=== PATIENT | female | born 1970 | race Caucasian/White ===

== ENCOUNTER 2023-07-13 10:37 | Emergency (ER) | payer OTHER, SELFPAY ==
--- NOTE | ~2023-07-13 | XR_ITS ---
XR chest 2V DATE: 07/13/2023 11:31 INDICATION: Shortness of breath TECHNIQUE: PA and lateral views COMPARISON: None FINDINGS: Normal heart size. No hilar or mediastinal enlargement. No pulmonary infiltrate or consolid ation, pleural effusion or pulmonary vascular congestion or pneumothorax. Mild thoracolumbar levoscoliosis. Degenerative spurring of the lumbar spine. Osteopenia. IMPRESSION: No active cardiopulmonary disease Reviewed, dictated and finalized at location A.
--- NOTE | 2023-07-13 10:41 | ED.GENADULT ---
HPI - General Adult General Chief complaint: Upper Respiratory Infection Stated complaint: COUGH/SOB Time Seen by Provider: 07/13/23 10:42 Source: patient Mode of arrival: ambulatory Limitations: no limitations History of Present Illness HPI narrative: 52-year-old female presents to clinic today with symptoms of cough, wheezing, chest congestion. Patient states her symptoms started Saturday with feeling unwell, body aches, chills, runny nose and nasal congestion. Patient states she has been taking [id number] ibuprofen, Mucinex, DayQuil, and a albuterol inhaler from a previous illness and none of them have helped. Patient found out that her twhlbr-bq-zmn and niece tested positive for influenza A this week as she was recently with them for [facility]. She called her insurance company over the phone who prescribed her Tamiflu if she took the 1st dose last night. Patient has a history of social smoking and quit 5 months ago as well as a childhood history of asthma that was usually illness and exercise induced. Patient reports that the wheezing is getting worse as well as dyspnea and not able to take a full deep breath. patient has taken her temperature at home and there has been no fever. Patient also took a home COVID test which was negative on . Related Data Home Medications Medication Instructions Recorded Confirmed cholecalciferol (vitamin D3) 50 50 mcg PO DAILY 01/16/22 01/31/22 mcg (2,000 unit) capsule omega 6-bqz-zhm-fish oil 100 cap PO 01/16/22 01/31/22 mg-160 mg-1,000 mg capsule (Fish Oil) oseltamivir 75 mg capsule mg 07/13/23 Allergies Allergy/AdvReac Type Severity Reaction Status Date / Time Penicillins Allergy Unknown Unknown Verified 07/13/23 10:56 Review of Systems Review of Systems: CONSTITUTIONAL: Denies fever, positive chills, positive body aches. EYES: Denies visual changes, redness, or discharge. ENT: positive rhinorrhea, congestion, and denies sore throat, or otalgia. CARDIOVASCULAR: Denies chest pain, palpitations, or edema. RESPIRATORY: positive nonproductive cough, wheezing, and dyspnea. GASTROINTESTINAL: Denies abdominal pain, nausea, vomiting, or diarrhea. GENITOURINARY: Denies dysuria or hematuria. SKIN: Denies rash or itching. MUSCULOSKELETAL: Denies back pain, joint pain, or myalgia. NEUROLOGIC: positive headache, and denies numbness, or weakness. PSYCHIATRIC: Denies anxiety or depression. [facility] Past Medical History Medical History Dysfunctional uterine bleeding Mucous cyst of toe Surgical History Surgical History No pertinent past surgical history Family History Family History Other Diabetes mellitus Social History Social History Years smoked: 12 Smoking status: Current some day smoker (only in social situations) Tobacco type: cigarettes Second hand tobacco smoke exposure: Yes Additional smoking assessment comments: SOCIALLY Alcohol intake: current Substance use: unknown Lack of Transportation: No Lack of Food: Never True Current Housing: I Have Housing Concerned About Future Housing: No Difficulty Paying Gas/Electric Bills: No Difficulty Paying for Meds: No Currently Unemployed: No Education: High School Diploma/GED Difficulty w/ Childcare or Family Care: No Occupation/Education: occupation Gender identity (if verbalized by the patient): Female Comments At the time of my signature I agree with nursing past medical history, surgical, social, and family history. There is no relevant family history pertinent to the presenting complaint. Exam Narrative: GENERAL: Well-appearing, well-nourished, and in no acute distress. HEAD: Normocephalic, atraumatic. EYES: PERRLA and EOMI. bilateral
[2023-07-13 11:07] VITALS: BP 136/96; PULSE 104; RESP 16; TEMP 36.9; O2SAT 95
[2023-07-13] MEDS: IPRATROPIUM 0.5 MG/ALBUTEROL SULFATE 2.5 MG AMPUL.NEB 3 ML INHALATION (11:34)
[2023-07-13 12:45] VITALS: PULSE 110; RESP 20; O2SAT 93
== END 2023-07-13 12:16 | disposition home or self-care (01) ==
PROVIDERS: Emergency Provider Nurse Practitioner Family; PCP Family Medicine
DX: J06.9 Acute upper respiratory infection, unspecified (principal); R06.2 Wheezing; Z87.891 Personal history of nicotine dependence
CPT/HCPCS: 71046; 94640; 99213; G0463

== ENCOUNTER 2024-04-21 12:27 | Outpatient (CLI) | payer OTHER, SELFPAY ==
--- NOTE | ~2024-04-21 | MM_ITS ---
EXAMINATION: MM screening liat BI w emmanuel HISTORY: Screening mammogram TECHNIQUE: Craniocaudal and mediolateral oblique 3-D tomosynthesis images were obtained and synthetic 2-D images were generated. CAD analysis was submitted and interpreted. COMPARISON: No prior mammogram is available for comparison at this institution. BREAST PARENCHYMAL COMPOSITION:Not Dense. The breasts are almost entirely fatty FINDINGS: No suspicious mass, calcification, or architectural distortion are identified in either miguel ast to suggest malignancy. There has been no suspicious interval change. IMPRESSION: No mammographic evidence of malignancy. Recommend routine screening mammography in one year. BI-RADS Category 1: Negative Reviewed, dictated and finalized at location . RESEARCH ASSOCIATE
== END 2024-04-21 12:28 | disposition home or self-care (01) ==
LOC: MICIMG 12:28
PROVIDERS: PCP Family Medicine; Visit Provider Family Medicine
DX: Z12.31 Encounter for screening mammogram for malignant neoplasm of breast (principal)
CPT/HCPCS: 77063; 77067

== ENCOUNTER 2024-08-10 08:52 | Outpatient (CLI) | payer OTHER, SELFPAY ==
[2024-08-10 13:15] LABS: Alanine Aminotransferase 22 U/L (6-35); Albumin Level 4.5 g/dL (3.5-5.1); Alkaline Phosphatase 98 U/L (38-126); Anion Gap 11 mmol/L (4-12); Aspartate Amino Transferase 27 U/L (14-36); Bilirubin,Total 0.3 mg/dL (0.2-1.3); Blood Urea Nitrogen 13 mg/dL (7-17); Calcium 9.5 mg/dL (8.4-10.2); Carbon Dioxide 24 mmol/L (22-30); Chloride 104 mmol/L (98-107); Cholesterol 205 mg/dL (0-200); Estimated Glomerular Filt Rate > 60; Glucose 84 mg/dL (65-110); HDL Direct 41 mg/dL; Potassium 4.7 mmol/L (3.4-5.0); Sodium 139 mmol/L (137-145); Triglycerides 285 mg/dL (<150)
[2024-08-10 13:26] LABS: LDL Cholesterol Direct 101 mg/dL
[2024-08-10 13:40] LABS: Hemoglobin A1C 5.1 % (<5.7)
[2024-08-10 13:52] LABS: Creatinine Urine 174.6 mg/dL; MALB Creatinine Ratio 11.7 mg/g (0-30); Microalbumin Urine Random 20.4 mg/L (0-16.7)
[2024-08-10 14:28] LABS: Hepatitis C Virus Antibody Negative (Negative)
[2024-08-11 09:48] LABS: FSH 56.5 mIU/mL; LH 22.1 mIU/mL
== END 2024-08-10 08:53 | disposition home or self-care (01) ==
LOC: ANHGOSHLAB 08:54
PROVIDERS: PCP Family Medicine; Visit Provider Family Medicine
DX: Z11.59 Encounter for screening for other viral diseases (principal); R73.03 Prediabetes; Z68.41 Body mass index [BMI] 40.0-44.9, adult
CPT/HCPCS: 36415; 80053; 80061; 82043; 82607; 83001; 83002; 83036; 84443; 86803

== ENCOUNTER 2024-08-27 14:12 | Observation (INO) | payer OTHER, SELFPAY ==
--- NOTE | ~2024-08-27 | CT_ITS ---
CLINICAL INDICATION: Right upper quadrant pain and right middle back pain COMPARISON: None. TECHNIQUE: Multiple contiguous axial images of the abdomen and pelvis were performed following the ad ministration of with 100 mL Omnipaque-350 intravenous contrast The dose-length product (DLP) was 1197.21 mGy-cm. Automated exposure control and iterative reconstruction technique were employed. FINDINGS/OBSERVATIONS: Visualized lower thorax: The bilateral lung bases are clear. The heart is of normal size, without pericardial effusion. Small hiatal hernia is present. Liver: The liver demonstrates homogeneous enhancement and is enlarged measuring 22 cm in longitudinal dimens ion. Gallbladder and biliary system: The gallbladder is significantly distended, with pericholecystic fluid and surrounding inflammatory c hange. Multiple stones and gallbladder wall thickening are identified. Pancreas: The pancreas enhances homogeneously without ductal dilatation. Spleen: The spleen enhances homogeneously and is not enlarged. Kidneys: The bilateral kidneys enhance symmetrically without hydronephrosis or renal calculi. Adrenal glands: Unremarkable. Gastrointestinal tract: Colonic diverticulosis without surrounding inflammatory change. Fecal stasis within the colon. Appendix: The air-filled appendix is of normal caliber (axial series, images 140 through 164) Vasculature: Unremarkable. Lymph nodes: No pathologically enlarged or morphologically suspicious lymph nodes within the retroperitoneum or at the root of the mesentery. Pelvic structures: The bladder is only minimally distended, and otherwise unremarkable. The uterus is anteverted and anteflexed. Body wall and musculoskeletal: Small fat-containing umbilical hernia. Age-appropriate degenerative disease within the lumbosacral spine. IMPRESSION: Findings consistent with acute cholecystitis, as detailed above. Reviewed, dictated and finalized at location A.
--- NOTE | ~2024-08-27 | US_ITS ---
EXAM: ABDOMEN ULTRASOUND HISTORY: RUQ pain COMPARISON: Reference is made to a contrast-enhanced CT examination of the abdomen and pelvis perform ed approximately 1 hour earlier demonstrating findings consistent with acute cholecystitis FINDINGS: LIVER: The liver is increased in echogenicity and size. The portal vein is patent, demonstrating hepatopedal flow. GALLBLADDER: The wall of the gallbladder is edematous and thickened. Multiple stones are present. BILE DUCTS: Common bile duct measures 4.3mm. PANCREAS: Limited evaluation of the pancreas secondary to overlying bowel gas IMPRESSION: Acute cholecystitis, unchanged from CT examination performed less than an hour earlier Reviewed, dictated and finalized at location A.
[2024-08-27 14:29] VITALS: BP 130/91; PULSE 135; RESP 16; TEMP 36.6; O2SAT 98
--- NOTE | 2024-08-27 15:44 | ED.ABDPAIN ---
HPI - Abdominal Pain General Chief Complaint: Abdominal Pain <PAMELA Sharma Last Filed: 08/27/24 15:53> Stated Complaint: Right upper abd pain <PAMELA Sharma Last Filed: 08/27/24 15:53> Time Seen by Provider: 08/27/24 15:45 <PAMELA Sharma Last Filed: 08/27/24 15:53> Focused HPI: Patient is a 53 y/o female who presents to the ED with c/o RUQ abd pain. Patient reports she developed pain in her R mid to upper back on Saturday. Pain lasted for a few hours at that time. Began to radiate into her R upper abdomen. Developed N/V, reported having multiple episodes of vomiting Saturday. Has been taking Ibuprofen with minimal relief. Also chills, subjective fevers. Denies diarrhea/constipation. Denies hx of similar pain. She does still have a gallbladder. GENERAL: Well-appearing, obese with BMI of 38.9, and in no acute distress. HEAD: Normocephalic, atraumatic. CHEST: Clear to auscultation. ?No respiratory distress. HEART: Tachycardic with regular rhythm.?Pulses intact. ABD: Focal tenderness to palpation in RUQ. Normoactive BS MSK: No appreciable tenderness throughout mid back. NEURO: ?Alert and oriented x3. Patient screened in triage and initial orders placed.? ?Additional care and disposition to be based upon?diagnostic testing and treatment. <Elaina Stark PA-C - Last Filed: 08/27/24 15:53> Source: patient <PAMELA Sharma Last Filed: 08/27/24 15:53> Mode of arrival: ambulatory <PAMELA Sharma Last Filed: 08/27/24 15:53> Limitations: no limitations <PAMELA Sharma Last Filed: 08/27/24 15:53> History of Present Illness HPI narrative: Agree with HPI <Fernando Bernal MD - Last Filed: 08/27/24 22:17> Related Data Home Medications: Home Medications ?Medication ?Instructions ?Recorded ?Confirmed ?Last Taken ?Type cholecalciferol (vitamin D3) 50 50 mcg PO DAILY 01/16/22 08/27/24 08/25/24 History mcg (2,000 unit) capsule omega 8-xpc-npp-fish oil 100 1 cap PO DAILY 01/16/22 08/27/24 08/25/24 History mg-160 mg-1,000 mg capsule (Fish Oil) Semaglutide compounded subcut 07/08/24 07/08/24 08/13/24 History <Elaina Stark PA-C - Last Filed: 08/27/24 15:53> Allergies/Adverse Reactions: Allergies Allergy/AdvReac Type Severity Reaction Status Date / Time Penicillins Allergy Unknown Peeling Verified 08/27/24 14:13 skin <PAMELA Sharma Last Filed: 08/27/24 15:53> Review of Systems Review of Systems: All systems reviewed & are unremarkable except as noted in HPI and below <PAMELA Miller Last Filed: 08/27/24 19:40> [facility] Past Medical History Medical History: Medical History Asthma Mixed hyperlipidemia Polycystic ovarian syndrome <PAMELA Sharma Last Filed: 08/27/24 15:53> Surgical History Surgical History: Surgical History No pertinent past surgical history <PAMELA Sharma Last Filed: 08/27/24 15:53> Family History Family History: Family History Other Diabetes mellitus <PAMELA Sharma Last Filed: 08/27/24 15:53> Social History Social History: Social History Years smoked: 12 Smoking status: Current some day smoker (only in social situations) Tobacco type: cigarettes Second hand tobacco smoke exposure: Yes Additional smoking assessment comments: SOCIALLY since she was in her early 20's, pt states maybe once every couple Alcohol intake: current Alcohol use details: occasionally Substance use: never Substance use type: does not use Do You Feel Safe in your Home?: Yes Lack of Transportation: No Lack of Food: Never True Current Housing: I Have Housing Concerned About Future Housing: No Difficulty Paying Gas/Electric Bills: No Difficulty Paying for Meds: No Currently Unemployed: No Education: High School Diploma/GED Difficulty w/ Childcare or Family Care: No Occupation/Education: occupation Gender identity (if verbalized by the patient): Female <Elaina Stark PA-C - Last Filed: 08/27/24 15:53> Exam Narrative: GENERAL: Well-appearing, well-nourished, and in no acute distress. HEAD: Normocephalic, atraumatic. EYES: EOMI. CHEST: Clear to auscultation. No respiratory distress. No wheezes rales or rhonchi HEART: Regular rate and rhythm. No murmur heard. Normal peripheral pulses. ABDOMEN: Soft, nondistended, normal active bowel sounds. Tender to palpation in the RUQ, without guarding EXTREMITIES: Normal range of motion. No edema. SKIN: Warm, dry, no rash. NEURO: No focal deficits. Alert and oriented x3. PSYCH: Normal mood and affect <Belgica Pope PA-C - Last Filed: 08/27/24 19:40> Course Course Emergency Course: patient updated on her workup and need for admission <Belgica Pope PA-C - Last Filed: 08/27/24 19:40> COMBINING MACHINE OPERATOR/PA Physician Supervision This visit was performed by both a physician and an APC. I performed all aspects of the MDM as documented. <Fernando Bernal MD - Last Filed: 08/27/24 22:17> Consultations Consultation #1: Spoke with Dr. Lau who will consult <Belgica Pope PA-C - Last Filed: 08/27/24 19:40> Date: 08/27/24 <PAMELA Miller Last Filed: 08/27/24 19:40> Consultation #2: Spoke with hospitalist who accepts admission <Belgica Pope PA-C - Last Filed: 08/27/24 19:40> Date: 08/27/24 <Belgica Pope PA-C - Last Filed: 08/27/24 19:40> Vital Signs Vital signs: Vital Signs Temperature 97.8 F 08/27/24 14:29 Pulse Rate 135 H 08/27/24 14:29 Respiratory Rate 16 08/27/24 14:29 Blood Pressure 130/91 H 08/27/24 14:29 Pulse Oximetry 98 08/27/24 14:29 Temperature 97.7 F 08/27/24 20:54 Pulse Rate 104 H 08/27/24 20:54 Respiratory Rate 18 08/27/24 20:54 Blood Pressure 106/63 08/27/24 20:54 Pulse Oximetry 98 08/27/24 20:54 <Elaina Stark PA-C - Last Filed: 08/27/24 15:53> Vital Signs Temperature 97.8 F 08/27/24 14:29 Pulse Rate 135 H 08/27/24 14:29 Respiratory Rate 16 08/27/24 14:29 Blood Pressure 130/91 H 08/27/24 14:29 Pulse Oximetry 98 08/27/24 14:29 Temperature 97.7 F 08/27/24 20:54 Pulse Rate 104 H 08/27/24 20:54 Respiratory Rate 18 08/27/24 20:54 Blood Pressure 106/63 08/27/24 20:54 Pulse Oximetry 98 08/27/24 20:54 <Belgica Pope PA-C - Last Filed: 08/27/24 19:40> Vital Signs Temperature 97.8 F 08/27/24 14:29 Pulse Rate 135 H 08/27/24 14:29 Respiratory Rate 16 08/27/24 14:29 Blood Pressure 130/91 H 08/27/24 14:29 Pulse Oximetry 98 08/27/24 14:29 Temperature 97.7 F 08/27/24 20:54 Pulse Rate 104 H 08/27/24 20:54 Respiratory Rate 18 08/27/24 20:54 Blood Pressure 106/63 08/27/24 20:54 Pulse Oximetry 98 08/27/24 20:54 <Fernando Bernal MD - Last Filed: 08/27/24 22:17> MDM - Abdominal Pain MDM Narrative Medical decision making narrative: MSE by JOHN in triage. <PAMELA Sharma Last Filed: 08/27/24 15:53> MSE by JOHN in triage. Patient presents to the ER for RUQ abdominal pain. She is afebrile and nontoxic appearing. Tachycardic upon arrival. This improved with IV fluids. CBC with leukocytosis to 24.1. Metabolic panel with mild hyperbilirubinemia. Lipase is normal. Urine with 11-20 white blood cells, also moderate squamous epithelial cells. This will be sent for culture. Patient is not having any urinary symptoms test is negative. CT abdomen pelvis shows findings consistent with acute cholecystitis. Patient started on IV antibiotics. Spoke with general surgery who will consult. Spoke with hospitalist about patient and workup accepts admission. <PAMELA Miller Last Filed: 08/27/24 19:40> Differential Diagnosis Differential diagnosis: Likely gastroenteritis, pancreatitis and other (biliary colic) <PAMELA Miller Last Filed: 08/27/24 19:40> Lab Data Attestation: I reviewed the patient's lab results. <Belgica Pope PA-C - Last Filed: 08/27/24 19:40> Result diagrams: 08/27/24 15:55 08/27/24 15:55 <PAMELA Sharma Last Filed: 08/27/24 15:53> Labs: Lab Results 08/27/24 08/27/24 08/27/24 Range/Units 15:55 16:38 16:42 WBC 24.1 H (4.5-10.0) K/mm3 RBC 4.84 (4.2-5.4) M/mm3 Hgb 14.8 (12.0-15.0) g/dL Hct 43.0 (37.0-47.0) % MCV 88.8 (80-100) fl MCH 30.6 (26-34) pg MCHC 34.4 (32-36) g/dl RDW 13.8 (11.5-14.5) % Plt Count 241 (150-375) k/mm3 MPV 9.5 (7.4-10.4) fl Immature Gran % (Auto) 0.7 H (0-0.5) % Neut % (Auto) 84.4 H (45.5-73.1) % Lymph % (Auto) 7.4 L (18.3-44.2) % [place] % (Auto) 6.8 (2.6-8.5) % Eos % (Auto) 0.5 (0-4.4) % Baso % (Auto) 0.2 (0.2-1.2) % Lymph # (Auto) 1.77 (0.9-3.2) K/mm3 [place] # (Auto) 1.6 H (0.1-0.6) K/mm3 Eos # (Auto) 0.1 (0-0.3) K/mm3 Baso # (Auto) 0.0 (0.0-0.1) K/mm3 Abs Immat Gran (auto) 0.17 H (0.00-0.031) K/mm3 Absolute Neuts (auto) 20.3 H (1.3-6.7) K/mm3 Absolute Nucleated RBC 0.000 (0.0-0.012) K/mm3 Nucleated RBC % 0.0 (0.0-0.2) % Sodium 136 L (137-145) mmol/L Potassium 3.9 (3.4-5.0) mmol/L Chloride 100 (98-107) mmol/L Carbon Dioxide 23 (22-30) mmol/L Anion Gap 13 H (4-12) mmol/L BUN 11 (7-17) mg/dL Creatinine 0.62 L (0.7-1.0) mg/dL Estim Creat Clear Calc 109 ml/min Estimated GFR > 60 (59 - ) Glucose 138 H (65-110) mg/dL Calcium 9.8 (8.4-10.2) mg/dL Total Bilirubin 1.4 H (0.2-1.3) mg/dL AST 33 (14-36) U/L ALT 30 (6-35) U/L Alkaline Phosphatase 92 (38-126) U/L Troponin I < 0.012 (0.000-0.034) ng/mL Total Protein 9.0 H (6.3-8.2) g/dL Albumin 4.7 (3.5-5.1) g/dL Lipase 34 (23-300) U/L Procalcitonin 0.5 ng/mL Urine Color Dark yellow (Yellow) Urine Appearance Cloudy H (Clear) Urine pH 5.5 (5.0-9.0) Ur Specific [place] 1.017 (1.001-1.035) Urine Protein 1+ H (Negative) mg/dL Urine Glucose (UA) Negative (Negative) mg/dL Urine Ketones Trace H (Negative) mg/dL Ur Blood (Man) Negative (Negative) Urine Nitrate Negative (Negative) Urine Bilirubin Negative (Negative) Urine Urobilinogen 1.0 (<2.0) mg/dL Leukocyte Esterase Rfl 2+ H (Negative) MINDY/UL Urine RBC 3-5 H (0-2) /hpf Urine WBC 11-20 H (0-3) /hpf Ur Squamous Epith Cells Moderate (Few) /hpf Urine Bacteria 1+ H /hpf Urine Casts 0-2 POC Urine HCG, Qual Negative (Negative) <Elaina Stark PA-C - Last Filed: 08/27/24 15:53> Lab Results 08/27/24 08/27/24 08/27/24 Range/Units 15:55 16:38 16:42 WBC 24.1 H (4.5-10.0) K/mm3 RBC 4.84 (4.2-5.4) M/mm3 Hgb 14.8 (12.0-15.0) g/dL Hct 43.0 (37.0-47.0) % MCV 88.8 (80-100) fl MCH 30.6 (26-34) pg MCHC 34.4 (32-36) g/dl RDW 13.8 (11.5-14.5) % Plt Count 241 (150-375) k/mm3 MPV 9.5 (7.4-10.4) fl Immature Gran % (Auto) 0.7 H (0-0.5) % Neut % (Auto) 84.4 H (45.5-73.1) % Lymph % (Auto) 7.4 L (18.3-44.2) % [place] % (Auto) 6.8 (2.6-8.5) % Eos % (Auto) 0.5 (0-4.4) % Baso % (Auto) 0.2 (0.2-1.2) % Lymph # (Auto) 1.77 (0.9-3.2) K/mm3 [place] # (Auto) 1.6 H (0.1-0.6) K/mm3 Eos # (Auto) 0.1 (0-0.3) K/mm3 Baso # (Auto) 0.0 (0.0-0.1) K/mm3 Abs Immat Gran (auto) 0.17 H (0.00-0.031) K/mm3 Absolute Neuts (auto) 20.3 H (1.3-6.7) K/mm3 Absolute Nucleated RBC 0.000 (0.0-0.012) K/mm3 Nucleated RBC % 0.0 (0.0-0.2) % Sodium 136 L (137-145) mmol/L Potassium 3.9 (3.4-5.0) mmol/L Chloride 100 (98-107) mmol/L Carbon Dioxide 23 (22-30) mmol/L Anion Gap 13 H (4-12) mmol/L BUN 11 (7-17) mg/dL Creatinine 0.62 L (0.7-1.0) mg/dL Estim Creat Clear Calc 109 ml/min Estimated GFR > 60 (59 - ) Glucose 138 H (65-110) mg/dL Calcium 9.8 (8.4-10.2) mg/dL Total Bilirubin 1.4 H (0.2-1.3) mg/dL AST 33 (14-36) U/L ALT 30 (6-35) U/L Alkaline Phosphatase 92 (38-126) U/L Troponin I < 0.012 (0.000-0.034) ng/mL Total Protein 9.0 H (6.3-8.2) g/dL Albumin 4.7 (3.5-5.1) g/dL Lipase 34 (23-300) U/L Procalcitonin 0.5 ng/mL Urine Color Dark yellow (Yellow) Urine Appearance Cloudy H (Clear) Urine pH 5.5 (5.0-9.0) Ur Specific [place] 1.017 (1.001-1.035) Urine Protein 1+ H (Negative) mg/dL Urine Glucose (UA) Negative (Negative) mg/dL Urine Ketones Trace H (Negative) mg/dL Ur Blood (Man) Negative (Negative) Urine Nitrate Negative (Negative) Urine Bilirubin Negative (Negative) Urine Urobilinogen 1.0 (<2.0) mg/dL Leukocyte Esterase Rfl 2+ H (Negative) MINDY/UL Urine RBC 3-5 H (0-2) /hpf Urine WBC 11-20 H (0-3) /hpf Ur Squamous Epith Cells Moderate (Few) /hpf Urine Bacteria 1+ H /hpf Urine Casts 0-2 POC Urine HCG, Qual Negative (Negative) <Belgica Pope PA-C - Last Filed: 08/27/24 19:40> Lab Results 08/27/24 08/27/24 08/27/24 Range/Units 15:55 16:38 16:42 WBC 24.1 H (4.5-10.0) K/mm3 RBC 4.84 (4.2-5.4) M/mm3 Hgb 14.8 (12.0-15.0) g/dL Hct 43.0 (37.0-47.0) % MCV 88.8 (80-100) fl MCH 30.6 (26-34) pg MCHC 34.4 (32-36) g/dl RDW 13.8 (11.5-14.5) % Plt Count 241 (150-375) k/mm3 MPV 9.5 (7.4-10.4) fl Immature Gran % (Auto) 0.7 H (0-0.5) % Neut % (Auto) 84.4 H (45.5-73.1) % Lymph % (Auto) 7.4 L (18.3-44.2) % [place] % (Auto) 6.8 (2.6-8.5) % Eos % (Auto) 0.5 (0-4.4) % Baso % (Auto) 0.2 (0.2-1.2) % Lymph # (Auto) 1.77 (0.9-3.2) K/mm3 [place] # (Auto) 1.6 H (0.1-0.6) K/mm3 Eos # (Auto) 0.1 (0-0.3) K/mm3 Baso # (Auto) 0.0 (0.0-0.1) K/mm3 Abs Immat Gran (auto) 0.17 H (0.00-0.031) K/mm3 Absolute Neuts (auto) 20.3 H (1.3-6.7) K/mm3 Absolute Nucleated RBC 0.000 (0.0-0.012) K/mm3 Nucleated RBC % 0.0 (0.0-0.2) % Sodium 136 L (137-145) mmol/L Potassium 3.9 (3.4-5.0) mmol/L Chloride 100 (98-107) mmol/L Carbon Dioxide 23 (22-30) mmol/L Anion Gap 13 H (4-12) mmol/L BUN 11 (7-17) mg/dL Creatinine 0.62 L (0.7-1.0) mg/dL Estim Creat Clear Calc 109 ml/min Estimated GFR > 60 (59 - ) Glucose 138 H (65-110) mg/dL Calcium 9.8 (8.4-10.2) mg/dL Total Bilirubin 1.4 H (0.2-1.3) mg/dL AST 33 (14-36) U/L ALT 30 (6-35) U/L Alkaline Phosphatase 92 (38-126) U/L Troponin I < 0.012 (0.000-0.034) ng/mL Total Protein 9.0 H (6.3-8.2) g/dL Albumin 4.7 (3.5-5.1) g/dL Lipase 34 (23-300) U/L Procalcitonin 0.5 ng/mL Urine Color Dark yellow (Yellow) Urine Appearance Cloudy H (Clear) Urine pH 5.5 (5.0-9.0) Ur Specific [place] 1.017 (1.001-1.035) Urine Protein 1+ H (Negative) mg/dL Urine Glucose (UA) Negative (Negative) mg/dL Urine Ketones Trace H (Negative) mg/dL Ur Blood (Man) Negative (Negative) Urine Nitrate Negative (Negative) Urine Bilirubin Negative (Negative) Urine Urobilinogen 1.0 (<2.0) mg/dL Leukocyte Esterase Rfl 2+ H (Negative) MINDY/UL Urine RBC 3-5 H (0-2) /hpf Urine WBC 11-20 H (0-3) /hpf Ur Squamous Epith Cells Moderate (Few) /hpf Urine Bacteria 1+ H /hpf Urine Casts 0-2 POC Urine HCG, Qual Negative (Negative) <Fernando Bernal MD - Last Filed: 08/27/24 22:17> Imaging Data Radiologist's impression: ITS Impressions Abdomen/Pelvis CT 08/27/24 18:45 IMPRESSION: Findings consistent with acute cholecystitis, as detailed above. Abdomen Ultrasound 08/27/24 20:08 IMPRESSION: Acute cholecystitis, unchanged from CT examination performed less than an hour earlier <Elaina Stark PA-C - Last Filed: 08/27/24 15:53> ITS Impressions Abdomen/Pelvis CT 08/27/24 18:45 IMPRESSION: Findings consistent with acute cholecystitis, as detailed above. Abdomen Ultrasound 08/27/24 20:08 IMPRESSION: Acute cholecystitis, unchanged from CT examination performed less than an hour earlier <Belgica Pope PA-C - Last Filed: 08/27/24 19:40> ITS Impressions Abdomen/Pelvis CT 08/27/24 18:45 IMPRESSION: Findings consistent with acute cholecystitis, as detailed above. Abdomen Ultrasound 08/27/24 20:08 IMPRESSION: Acute cholecystitis, unchanged from CT examination performed less than an hour earlier <Fernando Bernal MD - Last Filed: 08/27/24 22:17> Critical Care Time Critical Care Time Critical Care Time: No <Belgica Pope PA-C - Last Filed: 08/27/24 19:40> Discharge Plan Discharge Clinical Impression: Acute cholecystitis <Elaina Stark PA-C - Last Filed: 08/27/24 15:53> Patient Disposition: Still a Patient <PAMELA Sharma Last Filed: 08/27/24 15:53> Condition: Stable <Elaina Stark PA-C - Last Filed: 08/27/24 15:53>
--- NOTE | 2024-08-27 15:47 | ECG_ITS ---
Test Date: 2024-08-27 15:58:32 Measurements Intervals [place] Rate: 130 P: 38 SC: 128 QRS: 55 QRSD: 90 T: 40 QT: 373 QTc: 549 Interpretive Statements SINUS TACHYCARDIA NONSPECIFIC T-WAVE ABNORMALITY No previous ECG available for comparison Electronically Signed On 08-28-2024 12:38:34 CDT by Melvin Self M.D.
[2024-08-27 16:06] LABS: Basophils Percent Auto 0.2 % (0.2-1.2); Eosinophils Absolute Auto 0.1 K/mm3 (0-0.3); Eosinophils Percent Auto 0.5 % (0-4.4); Hemoglobin 14.8 g/dL (12.0-15.0); Immature Granulocyte Absolute 0.17 K/mm3 (0.00-0.031); Immature Granulocyte Percent A 0.7 % (0-0.5); Lymphocytes Absolute Auto 1.77 K/mm3 (0.9-3.2); Lymphocytes Percent Auto 7.4 % (18.3-44.2); Mean Corpuscular HGB Conc 34.4 g/dl (32-36); Mean Corpuscular Hemoglobin 30.6 pg (26-34); Mean Corpuscular Volume 88.8 fl (80-100); Mean Platelet Volume 9.5 fl (7.4-10.4); Monocytes Absolute Auto 1.6 K/mm3 (0.1-0.6); Monocytes Percent Auto 6.8 % (2.6-8.5); Neutrophils Absolute Auto 20.3 K/mm3 (1.3-6.7); Neutrophils Percent Auto 84.4 % (45.5-73.1); Platelet Count Result 241 k/mm3 (150-375); Red Blood Count 4.84 M/mm3 (4.2-5.4); Red Cell Distribution Width 13.8 % (11.5-14.5); White Blood Count 24.1 K/mm3 (4.5-10.0)
[2024-08-27 16:20] LABS: Alanine Aminotransferase 30 U/L (6-35); Albumin Level 4.7 g/dL (3.5-5.1); Alkaline Phosphatase 92 U/L (38-126); Anion Gap 13 mmol/L (4-12); Aspartate Amino Transferase 33 U/L (14-36); Bilirubin,Total 1.4 mg/dL (0.2-1.3); Blood Urea Nitrogen 11 mg/dL (7-17); Calcium 9.8 mg/dL (8.4-10.2); Carbon Dioxide 23 mmol/L (22-30); Chloride 100 mmol/L (98-107); Estimated CRCL calculation 109 ml/min; Estimated Glomerular Filt Rate > 60; Glucose 138 mg/dL (65-110); Lipase 34 U/L (23-300); Potassium 3.9 mmol/L (3.4-5.0); Sodium 136 mmol/L (137-145)
[2024-08-27 16:33] LABS: Troponin I < 0.012 ng/mL (0.000-0.034)
[2024-08-27] MEDS: HYDROcodone/acetaminophen (*CRX) 5-325 MG TABLET 1 TAB PO (16:37)
[2024-08-27 16:44] LABS: BEDSIDEPREGUCG Negative (Negative)
[2024-08-27 16:50] LABS: Add Urine Microscopic? YES; Appearance Urine Cloudy (Clear); Bacteria Urine 1+ /hpf; Bilirubin Urine Negative (Negative); Blood Urine Negative (Negative); Color Urine Dark Yellow (Yellow); Glucose Urine UA Negative (Negative); Ketones Urine Trace mg/dL (Negative); Leukocyte Esterase Ur 2+ LEU/UL (Negative); Nitrate Urine Negative (Negative); Non Pathogenic Casts 0-2; Protein Urine 1+ mg/dL (Negative); Specific Grav Ur 1.017 (1.001-1.035); Squamous Epithelial Cell Urine Moderate /hpf (Few); pH Urine 5.5 (5.0-9.0)
[2024-08-27 17:58] VITALS: BP 112/84; PULSE 127; RESP 17; O2SAT 97
[2024-08-27] MEDS: SODIUM CHLORIDE 0.9% IV 1,000 ML 999 ML IV CONT (18:39)
[2024-08-27] MEDS: KETOROLAC 15 MG/ML VIAL (*BKC) IV PUSH (18:46)
--- NOTE | 2024-08-27 19:07 | P.HP_ITS ---
H&P: HPI History of Present Illness Date/Time: 08/27/24 19:07 Chief Complaint: Abdominal Pain Narrative: 53 y/o F with PMH of asthma (sports and allergy induced), PCOS, and HLD presents here with abdominal pain. The patient presents here from home for further evaluation of abdominal pain. She reports onset Saturday afternoon (08/25). Initially started as pain between her shoulder blades. Then within 3 hrs of onset she began having nausea and vomiting which persisted through the night. Saturday morning the patient's right upper abdomen began to hurt and was tender when she pressed on it. Endorsing chills. Denies diarrhea or fever. No abdominal surgical history. Initial VS at presentation: 97.8? F, HR 135, R 16, 130/91, 98% on RA. ED workup showed: WBC 24.1, no anemia, sodium 136, creatinine 0.62 and GFR >60, glucose 138, total bilirubin 1.4 with normal LFTs, initial troponin negative, UA suspicious for UTI however there are moderate epithelial cells recent concerns for contamination. HCG negative. CT of the abdomen/pelvis and ultrasound of the abdomen showed acute cholecystitis. Review of Systems Review of Systems: All systems reviewed & are unremarkable except as noted in HPI and below [facility] Past Medical History Medical History Asthma Mixed hyperlipidemia Polycystic ovarian syndrome Surgical History Surgical History No pertinent past surgical history Family History Family History Other Diabetes mellitus Social History Social History Years smoked: 12 Smoking status: Current some day smoker (only in social situations) Tobacco type: cigarettes Second hand tobacco smoke exposure: Yes Additional smoking assessment comments: SOCIALLY since she was in her early 20's, pt states maybe once every couple Alcohol intake: current Alcohol use details: occasionally Substance use: never Substance use type: does not use Do You Feel Safe in your Home?: Yes Lack of Transportation: No Lack of Food: Never True Current Housing: I Have Housing Concerned About Future Housing: No Difficulty Paying Gas/Electric Bills: No Difficulty Paying for Meds: No Currently Unemployed: No Education: High School Diploma/GED Difficulty w/ Childcare or Family Care: No Occupation/Education: occupation Gender identity (if verbalized by the patient): Female Meds Home Medications and Allergies Home Medications ?Medication ?Instructions ?Recorded ?Confirmed ?Type cholecalciferol (vitamin D3) 50 50 mcg PO DAILY 01/16/22 07/08/24 History mcg (2,000 unit) capsule omega 6-vny-kpl-fish oil 100 1 cap PO DAILY 01/16/22 07/08/24 History mg-160 mg-1,000 mg capsule (Fish Oil) albuterol sulfate 90 mcg/actuation 2 puff inhalation .Q4 hours PRN 07/13/23 07/08/24 Rx aerosol inhaler (Ventolin HFA) cough #18 grams atorvastatin 10 mg tablet See Rx Instructions .Route 03/19/24 07/08/24 Rx .COMPLEX #90 tabs venlafaxine 37.5 mg See Rx Instructions .Route 04/06/24 07/08/24 Rx capsule,extended release 24 hr .COMPLEX #90 caps alprazolam 0.5 mg tablet 0.5 mg PO TID PRN anxiety #15 tabs 05/11/24 07/08/24 Rx Semaglutide compounded subcut 07/08/24 07/08/24 History sodium sul 1.479 gram-potas ch See Rx Instructions PO PER PKG DIR 07/23/24 Rx 0.188 gram-magnes sul 0.225 gram #24 tabs tablet (Sutab) spironolactone 50 mg tablet See Rx Instructions .Route 08/13/24 Rx .COMPLEX #180 tabs metformin 500 mg tablet,extended 1,000 mg (2 x 500 mg) PO BID #360 08/14/24 Rx release 24 hr tabs ketorolac 10 mg tablet 10 mg PO .COMPLEX PRN pain 5 days 08/27/24 Rx #21 tabs Allergies Allergy/AdvReac Type Severity Reaction Status Date / Time Penicillins Allergy Unknown Peeling Verified 08/27/24 14:13 skin Vital Signs Vital Signs - 24 hr 08/27/24 14:29 08/27/24 17:58 Temperature 97.8 F Pulse Rate 135 H 127 H Respiratory Rate 16 17 Blood Pressure 130/91 H 112/84 Pulse Oximetry 98 97 Exam Const: General: comfortable and no acute distress Other: , female, nontoxic appearance HENMT: Face/Nose/Sinus: Normal nares present Mouth: Yes moist mucous membranes Eyes: General: appearance normal, both eyes and all related structures Sclera: sclerae normal Pupils: Equal, round and reactive pupils present EOM: EOMs intact bilaterally Resp: Effort & Inspection: normal respiratory effort Auscultation: clear to auscultation bilaterally Cardio: Rate: regular rate Rhythm: regular rhythm Other: S1-S2 present without murmur, rub, ectopy GI: Other: Significant tenderness in the right upper quadrant and epigastric region, more so on the right upper quadrant. Nondistended, normoactive bowel sounds in all quadrants, soft. Skin: General skin exam: normal color and no rashes or lesions noted Wounds: no wounds Neuro: Speech: normal speech Motor exam (neuro): 5/5 motor strength present throughout Sensory Exam: normal sensation Other: A&O x4 Extrem: General: normal to inspection Psych: Mental Status: mental status grossly normal Affect: normal affect Other: Good insight and judgment, very pleasant H&P: Results Labs Labs: Short CBC 08/27/24 Range/Units 15:55 WBC 24.1 H (4.5-10.0) K/mm3 Hgb 14.8 (12.0-15.0) g/dL Hct 43.0 (37.0-47.0) % Plt Count 241 (150-375) k/mm3 BMP 08/27/24 15:55 Sodium 136 L Potassium 3.9 Chloride 100 Carbon Dioxide 23 BUN 11 Creatinine 0.62 L Glucose 138 H Calcium 9.8 Cardiac Enzymes 08/27/24 Range/Units 15:55 Troponin I < 0.012 (0.000-0.034) ng/mL Liver Function 08/27/24 Range/Units 15:55 Total Bilirubin 1.4 H (0.2-1.3) mg/dL AST 33 (14-36) U/L ALT 30 (6-35) U/L Alkaline Phosphatase 92 (38-126) U/L Albumin 4.7 (3.5-5.1) g/dL Urine 08/27/24 Range/Units 16:38 Urine Color Dark yellow (Yellow) Urine Appearance Cloudy H (Clear) Urine pH 5.5 (5.0-9.0) Ur Specific [place] 1.017 (1.001-1.035) Urine Protein 1+ H (Negative) mg/dL Urine Glucose (UA) Negative (Negative) mg/dL Assessment and Plan Assessment and plan (1) Sepsis: Qualifiers: Sepsis acute organ dysfunction status: without acute organ dysfunction Sepsis type: sepsis due to unspecified organism Qualified Code(s): A41.9 - Sepsis, unspecified organism Code(s): A41.9 - Sepsis, unspecified organism Status: Acute Assessment and Plan: - meets SIRS criteria: HR, WBC. No hypotension or hypoxia. - has received fluids, no lactic ordered prior. Will check procalcitonin. - 30 mL/kg = 3L, initially given 1 L bolus. Will at 2 L bolus for total of 3. - suspected source: Acute cholecystitis - started on ceftriaxone and Flagyl - blood cultures drawn on 08/27 - UA suspicious for UTI, however may be contaminant as there are moderate epithelial cells - monitor hemodynamic stability (2) Acute cholecystitis: Code(s): K81.0 - Acute cholecystitis Status: Acute Assessment and Plan: - CT abd/pelvis: Findings consistent with acute cholecystitis, as detailed above. - total bilirubin 1.4, AST/ALT within normal limits, alk-phos within normal limits - general surgery consulted - Judi CULLEN - NPO with ice chips until midnight, then full NPO and IV fluids at 75 mL/hr - started on ceftriaxone and Flagyl on 08/27 - US RUQ ordered (3) UTI (urinary tract infection): Qualifiers: Hematuria presence: without hematuria Urinary tract infection type: acute cystitis Qualified Code(s): N30.00 - Acute cystitis without hematuria Code(s): N39.0 - Urinary tract infection, site not specified Status: Acute Assessment and Plan: - UA: Cloudy, 1+ protein, trace ketones, 2+ leuks, 3-5 RBC, 11-20 WBC, 1+ bacteria, moderate epithelial cells. Contaminant versus infection. - UC pending, follow - no previous micro available for review - started on Ceftriaxone on 08/27 (4) Prediabetes: Code(s): R73.03 - Prediabetes Status: Chronic Assessment and Plan: - A1c 5.1% on 08/10 Plan Diet: NPO GI Prophylaxis: Not currently indicated DVT Prophylaxis: SCDs IV fluids: 3L bolus -> 75 mL/hour Lines/Tubes: Peripheral IV Code Status: Full code Quality VTE Prophylaxis VTE prophylaxis: mechanical ordered Hospitalist MIPS Advance Care Plan I have confirmed that the patient's Advanced Care Plan is present, code status is documented, or surrogate decision maker is listed in patient medical record.: Yes Medication Reconciliation I have utilized all available resources to obtain, update and review the patients current medications (includes all prescriptions, OTC, herbals, cannabis, and nutritional supplements).: Yes
[2024-08-27] MEDS: metroNIDAZOLE 500 MG/ISO 100ML 500 MG/100 ML BAG 100 MG IVPB (19:25)
[2024-08-27 19:30] VITALS: BP 126/72; PULSE 108; RESP 18; O2SAT 98
[2024-08-27 20:12] LABS: Procalcitonin 0.5 ng/mL
[2024-08-27 20:18] VITALS: PULSE 104; RESP 20; O2SAT 100
[2024-08-27] MEDS: LACTATED RINGERS 1,000 ML 999 ML IV CONT ×2 (20:43→20:58)
[2024-08-27 20:54] VITALS: BP 106/63; PULSE 104; RESP 18; TEMP 36.5; O2SAT 98
[2024-08-27 21:00] VITALS: PULSE 115; RESP 18; O2SAT 98
[2024-08-27 21:55] VITALS: BMI 38.9
--- NOTE | 2024-08-27 22:22 | ADMGEN ---
This patient, Jessica Crowley, was admitted to [facility] S[facility] Room 329-01. Patient/family oriented to hospital policies and general routines including ID bracelet, bed and alarms, visiting hours, pain management, procedures, bathroom and other care routines, personal items, smoking policy, room service/diet, and visiting hours. Information on how to activate the Rapid Response Team has been discussed. Patient/Family are encouraged to report perceived risks to care and to ask questions if they do not understand what they are told or what they should do.
[2024-08-27] MEDS: MORPHINE SULFATE (*CRX) 4 MG/ML INJ IV PUSH (22:45)
[2024-08-27] MEDS: SODIUM CHLORIDE 0.9% IV 1,000 ML 75 ML IV CONT (22:45)
[2024-08-28] VITALS (21 sets, daily range): BP systolic 106–148; BP diastolic 70–97; PULSE 97–120; RESP 12–22; TEMP 35.5–37.1; O2SAT 92–100
[2024-08-28] MEDS: MORPHINE SULFATE (*CRX) 4 MG/ML INJ IV PUSH ×2 (04:35→09:32)
[2024-08-28] MEDS: metroNIDAZOLE 500 MG/ISO 100ML 500 MG/100 ML BAG 100 MG IVPB ×3 (05:32→21:54)
[2024-08-28 06:36] LABS: Basophils Percent Auto 0.3 % (0.2-1.2); Eosinophils Absolute Auto 0.1 K/mm3 (0-0.3); Eosinophils Percent Auto 0.9 % (0-4.4); Hematocrit 36.7 % (37.0-47.0); Hemoglobin 12.1 g/dL (12.0-15.0); Immature Granulocyte Absolute 0.12 K/mm3 (0.00-0.031); Immature Granulocyte Percent A 0.8 % (0-0.5); Lymphocytes Absolute Auto 1.11 K/mm3 (0.9-3.2); Lymphocytes Percent Auto 7.1 % (18.3-44.2); Mean Corpuscular Hemoglobin 30.3 pg (26-34); Mean Corpuscular Volume 91.8 fl (80-100); Mean Platelet Volume 9.6 fl (7.4-10.4); Monocytes Absolute Auto 1.1 K/mm3 (0.1-0.6); Monocytes Percent Auto 6.9 % (2.6-8.5); Neutrophils Absolute Auto 13.1 K/mm3 (1.3-6.7); Platelet Count Result 188 k/mm3 (150-375); White Blood Count 15.6 K/mm3 (4.5-10.0)
[2024-08-28 06:54] LABS: Alanine Aminotransferase 28 U/L (6-35); Albumin Level 3.8 g/dL (3.5-5.1); Alkaline Phosphatase 95 U/L (38-126); Anion Gap 8 mmol/L (4-12); Aspartate Amino Transferase 31 U/L (14-36); Bilirubin,Total 0.7 mg/dL (0.2-1.3); Blood Urea Nitrogen 10 mg/dL (7-17); Calcium 8.6 mg/dL (8.4-10.2); Carbon Dioxide 23 mmol/L (22-30); Chloride 105 mmol/L (98-107); Estimated CRCL calculation 126 ml/min; Estimated Glomerular Filt Rate > 60; Glucose 113 mg/dL (65-110); Potassium 3.7 mmol/L (3.4-5.0); Sodium 136 mmol/L (137-145)
--- NOTE | 2024-08-28 08:22 | P.CONGS_ITS ---
Assessment and Plan Assessment and plan (1) Acute cholecystitis: Code(s): K81.0 - Acute cholecystitis Status: Acute Assessment and Plan: * I have reviewed the CT and discussed the findings with the patient. She has evidence of acute calculous cholecystitis. She is feeling somewhat better since being admitted but is still having pain. She also came in an elevated white blood count and tachycardia consistent with sepsis. She has been started broad-spectrum antibiotics. I discussed treatment options and have recommended proceeding with laparoscopic cholecystectomy, possible open during this admission. I discussed the procedure, risks, benefits, and alternatives. Questions were answered. (2) Metabolic syndrome: Code(s): E88.81 - Metabolic syndrome and other insulin resistance Status: Acute (3) Sepsis: Qualifiers: Sepsis type: sepsis due to unspecified organism Sepsis acute organ dysfunction status: without acute organ dysfunction Qualified Code(s): A41.9 - Sepsis, unspecified organism Code(s): A41.9 - Sepsis, unspecified organism Status: Acute History of Present Illness Consult details Consult date: 08/28/24 Reason for consult: other (Acute calculous cholecystitis) Requesting physician: Belgica Pope PA-C Narrative: This is a 53-year-old woman who presented to the emergency department on 08/27/2024 with right upper quadrant pain that started about 2 days prior. She had eaten sausage, cheese, and crackers as well as some cheese cake prior to the pain starting. She had never had any symptoms like this in the past. She was also experiencing nausea and vomiting. She denies any fevers. Her pain was worsening on Saturday and therefore she came to the emergency department yesterday. workup in the emergency department showed evidence of acute cholecystitis with an elevated white blood count. She was admitted to the hospital for further treatment. She is still having some right upper quadrant pain when pushed on but is comfortable while resting. Review of Systems 2 Review of Systems: All systems reviewed & are unremarkable except as noted in HPI and below Constitutional: Constitutional: Denies chills and Denies fever(s) Eyes: Eyes: Denies change in vision ENT: Denies hearing loss, Denies neck pain and Denies sore throat Cardiovascular: Cardiovascular: Denies chest pain and Denies dyspnea Respiratory: Respiratory: Denies cough, Denies dyspnea and Denies wheezing Genitourinary: Genitourinary: Denies hematuria and Denies dysuria Musculoskeletal: Musculoskeletal: Denies arthralgias, Denies joint swelling and Denies neck pain Allergic/Immunologic: Allergic/Immunologic: Denies wheezing [facility] Past Medical History Medical History Asthma Mixed hyperlipidemia Polycystic ovarian syndrome Surgical History Surgical History No pertinent past surgical history Family History Family History (Updated 08/27/24 @ 22:27 by Chu Ordonez RN) Grandparent Diabetes mellitus Social History Social History Years smoked: 12 Smoking status: Current some day smoker Tobacco type: cigarettes Second hand tobacco smoke exposure: Yes Additional smoking assessment comments: SOCIALLY since she was in her early 20's, pt states maybe once every couple Alcohol intake: current Drinks per week: 1 Alcohol use details: occasionally Substance use: never Substance use type: marijuana Last use: July 18 Do You Feel Safe in your Home?: Yes Lack of Transportation: No Lack of Food: Never True Current Housing: I Have Housing Concerned About Future Housing: No Difficulty Paying Gas/Electric Bills: No Difficulty Paying for Meds: No Currently Unemployed: No Education: High School Diploma/GED Difficulty w/ Childcare or Family Care: No Occupation/Education: occupation Gender identity (if verbalized by the patient): Female Spiritual care concerns: No Meds Home Medications and Allergies Home Medications ?Medication ?Instructions ?Recorded ?Confirmed ?Type cholecalciferol (vitamin D3) 50 50 mcg PO DAILY 01/16/22 08/27/24 History mcg (2,000 unit) capsule omega 4-ntr-hom-fish oil 100 1 cap PO DAILY 01/16/22 08/27/24 History mg-160 mg-1,000 mg capsule (Fish Oil) albuterol sulfate 90 mcg/actuation 2 puff inhalation .Q4 hours PRN 07/13/23 08/27/24 Rx aerosol inhaler (Ventolin HFA) cough #18 grams atorvastatin 10 mg tablet See Rx Instructions .Route 03/19/24 08/27/24 Rx .COMPLEX #90 tabs venlafaxine 37.5 mg See Rx Instructions .Route 04/06/24 08/27/24 Rx capsule,extended release 24 hr .COMPLEX #90 caps alprazolam 0.5 mg tablet 0.5 mg PO TID PRN anxiety #15 tabs 05/11/24 08/27/24 Rx Semaglutide compounded 1 unit subcut PRN 07/08/24 08/27/24 History sodium sul 1.479 gram-potas ch See Rx Instructions PO PER PKG DIR 07/23/24 08/27/24 Rx 0.188 gram-magnes sul 0.225 gram #24 tabs tablet (Sutab) spironolactone 50 mg tablet See Rx Instructions .Route 08/13/24 08/27/24 Rx .COMPLEX #180 tabs metformin 500 mg tablet,extended 1,000 mg (2 x 500 mg) PO BID #360 08/14/24 08/27/24 Rx release 24 hr tabs ketorolac 10 mg tablet 10 mg PO .COMPLEX PRN pain 5 days 08/27/24 08/27/24 Rx #21 tabs Allergies Allergy/AdvReac Type Severity Reaction Status Date / Time Penicillins Allergy Unknown Peeling Verified 08/27/24 14:13 skin Vital Signs Vital Signs - 24 hr 08/27/24 14:29 08/27/24 17:58 08/27/24 19:30 Temperature 97.8 F Pulse Rate 135 H 127 H 108 H Respiratory Rate 16 17 18 Blood Pressure 130/91 H 112/84 126/72 Pulse Oximetry 98 97 98 Oxygen Delivery 08/27/24 20:18 08/27/24 20:54 08/27/24 21:00 Temperature 97.7 F Pulse Rate 104 H 104 H 115 H Respiratory Rate 20 18 18 Blood Pressure 106/63 Pulse Oximetry 100 98 98 Oxygen Delivery Room Air 08/28/24 00:00 08/28/24 04:00 08/28/24 06:00 Temperature 97.9 F Pulse Rate 115 H 110 H 109 H Respiratory Rate 16 Blood Pressure 117/70 Pulse Oximetry 96 Oxygen Delivery 08/28/24 07:59 08/28/24 08:00 Temperature Pulse Rate 120 H Respiratory Rate Blood Pressure Pulse Oximetry Oxygen Delivery Room Air Exam 2 Const: General: alert; No acute distress Orientation/consciousness: patient oriented x3 Limitations: no limitations HENMT: Head: normocephalic and atraumatic Ears: hearing grossly normal bilaterally Face/Nose/Sinus: Normal external nose present and Normal nares present Mouth: Yes Normal oral and palatal mucosa present and Yes moist mucous membranes Eyes: General: appearance normal, both eyes and all related structures C onjunctivae: conjunctivae normal Sclera: sclerae normal Pupils: Equal, round and reactive pupils present EOM: EOMs intact bilaterally Neck: Neck: normal visual inspection, full ROM, no lymphadenopathy, supple and no JVD Lymphatic: no lymphadenopathy noted Chest: Chest palpation & inspection: normal inspection of the chest Resp: Effort & Inspection: normal respiratory effort and able to speak in complete sentences Auscultation: clear to auscultation bilaterally P ercussion: percussion normal Cardio: Jugular venous distension: no JVD Rate: regular rate Rhythm: r egular rhythm Heart sounds: S1 normal heart sound present and S2 normal heart sound present Peripheral pulses: Peripheral pulses 2+ throughout GI: Inspection: normal to inspection Auscultation: normal bowel sounds : General: Yes no CVA tenderness Back/Spine/Pelvis: Back: no CVA tenderness Skin: General skin exam: normal color and dry skin Neuro: General: patient oriented x3, gait normal, moves all extremities, no focal motor deficits and CN's II-XI intact bilaterally Cranial nerves: Yes Equal, round and reactive pupils present Speech: normal speech Extrem: General: normal to inspection and capillary refill normal Results Labs 08/28/24 06:18 08/28/24 06:18 Labs: Abnormal lab results 08/27/24 08/27/24 08/28/24 Range/Units 15:55 16:38 06:18 WBC 24.1 H 15.6 H (4.5-10.0) K/mm3 RBC 4.00 L (4.2-5.4) M/mm3 Hct 36.7 L (37.0-47.0) % Immature Gran % (Auto) 0.7 H 0.8 H (0-0.5) % Neut % (Auto) 84.4 H 84.0 H (45.5-73.1) % Lymph % (Auto) 7.4 L 7.1 L (18.3-44.2) % [place] # (Auto) 1.6 H 1.1 H (0.1-0.6) K/mm3 Abs Immat Gran (auto) 0.17 H 0.12 H (0.00-0.031) K/mm3 Absolute Neuts (auto) 20.3 H 13.1 H (1.3-6.7) K/mm3 Sodium 136 L 136 L (137-145) mmol/L Anion Gap 13 H (4-12) mmol/L Creatinine 0.62 L 0.53 L (0.7-1.0) mg/dL Glucose 138 H 113 H (65-110) mg/dL Total Bilirubin 1.4 H (0.2-1.3) mg/dL Total Protein 9.0 H (6.3-8.2) g/dL Urine Appearance Cloudy H (Clear) Urine Protein 1+ H (Negative) mg/dL Urine Ketones Trace H (Negative) mg/dL Leukocyte Esterase Rfl 2+ H (Negative) MINDY/UL Urine RBC 3-5 H (0-2) /hpf Urine WBC 11-20 H (0-3) /hpf Urine Bacteria 1+ H /hpf Diabetes panel 08/27/24 08/28/24 Range/Units 15:55 06:18 Sodium 136 L 136 L (137-145) mmol/L Potassium 3.9 3.7 (3.4-5.0) mmol/L Chloride 100 105 (98-107) mmol/L Carbon Dioxide 23 23 (22-30) mmol/L BUN 11 10 (7-17) mg/dL Creatinine 0.62 L 0.53 L (0.7-1.0) mg/dL Glucose 138 H 113 H (65-110) mg/dL Calcium 9.8 8.6 (8.4-10.2) mg/dL AST 33 31 (14-36) U/L ALT 30 28 (6-35) U/L Alkaline Phosphatase 92 95 (38-126) U/L Total Protein 9.0 H 7.0 (6.3-8.2) g/dL Albumin 4.7 3.8 (3.5-5.1) g/dL Calcium panel 08/27/24 08/28/24 Range/Units 15:55 06:18 Calcium 9.8 8.6 (8.4-10.2) mg/dL Albumin 4.7 3.8 (3.5-5.1) g/dL Pituitary panel 08/27/24 08/28/24 Range/Units 15:55 06:18 Sodium 136 L 136 L (137-145) mmol/L Potassium 3.9 3.7 (3.4-5.0) mmol/L Chloride 100 105 (98-107) mmol/L Carbon Dioxide 23 23 (22-30) mmol/L BUN 11 10 (7-17) mg/dL Creatinine 0.62 L 0.53 L (0.7-1.0) mg/dL Glucose 138 H 113 H (65-110) mg/dL Calcium 9.8 8.6 (8.4-10.2) mg/dL Adrenal panel 08/27/24 08/28/24 Range/Units 15:55 06:18 Sodium 136 L 136 L (137-145) mmol/L Potassium 3.9 3.7 (3.4-5.0) mmol/L Chloride 100 105 (98-107) mmol/L Carbon Dioxide 23 23 (22-30) mmol/L BUN 11 10 (7-17) mg/dL Creatinine 0.62 L 0.53 L (0.7-1.0) mg/dL Glucose 138 H 113 H (65-110) mg/dL Calcium 9.8 8.6 (8.4-10.2) mg/dL Total Bilirubin 1.4 H 0.7 (0.2-1.3) mg/dL AST 33 31 (14-36) U/L ALT 30 28 (6-35) U/L Alkaline Phosphatase 92 95 (38-126) U/L Total Protein 9.0 H 7.0 (6.3-8.2) g/dL Albumin 4.7 3.8 (3.5-5.1) g/dL All other labs normal. Imaging Additional studies: ITS Impressions Abdomen/Pelvis CT 08/27/24 18:45 IMPRESSION: Findings consistent with acute cholecystitis, as detailed above. Abdomen Ultrasound 08/27/24 20:08 IMPRESSION: Acute cholecystitis, unchanged from CT examination performed less than an hour earlier
[2024-08-28] MEDS: SODIUM CHLORIDE 0.9% IV 1,000 ML 125 ML IV CONT (09:31)
[2024-08-28] MEDS: SPIRONOLACTONE 50 MG TABLET PO (09:32)
[2024-08-28 09:50] LABS: Lactic Acid Reflex 1.1 mmol/L (0.7-2.0)
[2024-08-28 10:05] LABS: Magnesium 1.9 mg/dL (1.6-2.3)
--- NOTE | 2024-08-28 10:11 | PM.IMPN ---
Progress Note: A&P Assessment and Plan (1) Sepsis: Qualifiers: Sepsis type: sepsis due to unspecified organism Sepsis acute organ dysfunction status: without acute organ dysfunction Qualified Code(s): A41.9 - Sepsis, unspecified organism Code(s): A41.9 - Sepsis, unspecified organism Status: Acute Assessment and Plan: - meets SIRS criteria: HR, WBC. No hypotension or hypoxia. - has received fluids, no lactic ordered prior. Will check procalcitonin. - 30 mL/kg = 3L, initially given 1 L bolus. Will at 2 L bolus for total of 3. - suspected source: Acute cholecystitis - started on ceftriaxone and Flagyl - blood cultures drawn on 08/27, no growth to date. - UA suspicious for UTI, however may be contaminant as there are moderate epithelial cells. Urine culture pending. - monitor hemodynamic stability - Lactic acid 1.1. - WBC improvin.1>15.6. (2) Acute cholecystitis: Code(s): K81.0 - Acute cholecystitis Status: Acute Assessment and Plan: - CT abd/pelvis: Findings consistent with acute cholecystitis, as detailed above. - total bilirubin 1.4, AST/ALT within normal limits, alk-phos within normal limits - general surgery consulted - Judi CULLEN - NPO with ice chips until midnight, then full NPO and IV fluids at 75 mL/hr - started on ceftriaxone and Flagyl on 08/27 - US RUQ showed: Acute cholecystitis, unchanged from CT examination performed less than an hour earlier. - Surgery planning cholecystectomy this afternoon. (3) UTI (urinary tract infection): Qualifiers: Urinary tract infection type: acute cystitis Hematuria presence: without hematuria Qualified Code(s): N30.00 - Acute cystitis without hematuria Code(s): N39.0 - Urinary tract infection, site not specified Status: Acute Assessment and Plan: - UA: Cloudy, 1+ protein, trace ketones, 2+ leuks, 3-5 RBC, 11-20 WBC, 1+ bacteria, moderate epithelial cells. Contaminant versus infection. - UC pending, follow - no previous micro available for review - started on Ceftriaxone on 08/27. Plan Diet: NPO GI Prophylaxis: Not currently indicated DVT Prophylaxis: SCDs IV fluids: 3L bolus -> 125 mL/hour Lines/Tubes: Peripheral IV Code Status: Full code Subjective Date/time seen: 08/28/24 10:11 Interval history: Patient reports pain is a 7 in right upper abdomen, sharp, and tenderness. Patient denies chest pain, palpitations, headache, dizziness, nausea, or vomiting. Family at bedside. Review of Systems Review of Systems: All systems reviewed & are unremarkable except as noted in HPI and below Exam Const: General: no acute distress and uncomfortable Resp: Effort & Inspection: normal respiratory effort Auscultation: clear to auscultation bilaterally Cardio: Rate: regular rate Rhythm: regular rhythm GI: GI Palp: Yes Soft to palpation and Yes Tenderness to palpation present (GI) (RUQ and gastric region) Auscultation: normal bowel sounds Neuro: Speech: normal speech Extrem: General: no pedal edema Psych: Mental Status: mental status grossly normal Affect: normal affect Objective Data Vital Signs Vital Signs: Vital Signs - 24 hr 08/27/24 14:29 08/27/24 17:58 08/27/24 19:30 Temperature 97.8 F Pulse Rate 135 H 127 H 108 H Respiratory Rate 16 17 18 Blood Pressure 130/91 H 112/84 126/72 Pulse Oximetry 98 97 98 Oxygen Delivery 08/27/24 20:18 08/27/24 20:54 08/27/24 21:00 Temperature 97.7 F Pulse Rate 104 H 104 H 115 H Respiratory Rate 20 18 18 Blood Pressure 106/63 Pulse Oximetry 100 98 98 Oxygen Delivery Room Air 08/28/24 00:00 08/28/24 04:00 08/28/24 06:00 Temperature 97.9 F Pulse Rate 115 H 110 H 109 H Respiratory Rate 16 Blood Pressure 117/70 Pulse Oximetry 96 Oxygen Delivery 08/28/24 07:59 08/28/24 08:00 Temperature Pulse Rate 120 H Respiratory Rate Blood Pressure Pulse Oximetry Oxygen Delivery Room Air Intake/Output Intake/Output: Intake & Output 08/25/24 08/26/24 08/27/24 08/28/24 23:59 23:59 23:59 23:59 Intake Total 3150 1100 Balance 3150 1100 Meds/Results Medications: Active Medications Generic Name Dose Route Start Last Admin Trade Name Freq PRN Reason Stop Dose Admin Acetaminophen 650 mg 08/27/24 19:21 Acetaminophen 650 Mg Suppository RECTAL Q6H PRN Mild Pain (1-3) or Fever Albuterol 2 puff 08/28/24 00:00 Albuterol Sulfate (*Sp) Aerosol 1 Puff INHALATION Q4HRT PRN cough Alprazolam 0.5 mg 08/28/24 00:00 Alprazolam (*Crx) 0.5 Mg Tablet PO TID PRN anxiety Sodium Chloride 1,000 mls @ 125 mls/hr 08/27/24 19:05 08/28/24 09:31 Normal Saline Iv IV CONT 75 mls/hr .Q8H YULY Administration Ceftriaxone Sodium 1 gm in 50 mls @ 100 mls/hr 08/28/24 18:00 Rocephin 1 Gm/Ns 50 Ml IVPB Q24H YULY Metronidazole 500 mg in 100 mls @ 100 mls/hr 08/28/24 06:00 08/28/24 06:32 Flagyl 500 Mg/Iso Soln 100 Ml IVPB Infused Q8H YULY Infusion Morphine Sulfate 2 mg 08/27/24 20:35 Morphine Sulfate (*Crx) 2 Mg/Ml Inj IV PUSH Q4H PRN Pain Rated 4-6 Morphine Sulfate 4 mg 08/27/24 20:35 08/28/24 09:32 Morphine Sulfate (*Crx) 4 Mg/Ml Inj IV PUSH 4 mg Q4H PRN Administration Pain Rated 7-10 Spironolactone 50 mg 08/28/24 09:00 08/28/24 09:32 Spironolactone 50 Mg Tablet PO 50 mg BID YULY Administration Venlafaxine HCl 37.5 mg 08/28/24 21:00 Venlafaxine Hcl Xr 37.5 Mg Cap PO QHS [facility] Radiology Results: ITS Impressions Abdomen/Pelvis CT 08/27/24 18:45 IMPRESSION: Findings consistent with acute cholecystitis, as detailed above. Abdomen Ultrasound 08/27/24 20:08 IMPRESSION: Acute cholecystitis, unchanged from CT examination performed less than an hour earlier Labs Labs: Laboratory Results - last 24 hr 08/27/24 08/27/24 08/27/24 15:55 16:38 16:42 WBC 24.1 H RBC 4.84 Hgb 14.8 Hct 43.0 MCV 88.8 MCH 30.6 MCHC 34.4 RDW 13.8 Plt Count 241 MPV 9.5 Immature Gran % (Auto) 0.7 H Neut % (Auto) 84.4 H Lymph % (Auto) 7.4 L Bibb % (Auto) 6.8 Eos % (Auto) 0.5 Baso % (Auto) 0.2 Lymph # (Auto) 1.77 Bibb # (Auto) 1.6 H Eos # (Auto) 0.1 Baso # (Auto) 0.0 Abs Immat Gran (auto) 0.17 H Absolute Neuts (auto) 20.3 H Absolute Nucleated RBC 0.000 Nucleated RBC % 0.0 Sodium 136 L Potassium 3.9 Chloride 100 Carbon Dioxide 23 Anion Gap 13 H BUN 11 Creatinine 0.62 L Estim Creat Clear Calc 109 Estimated GFR > 60 Glucose 138 H Lactic Acid Calcium 9.8 Magnesium Total Bilirubin 1.4 H AST 33 ALT 30 Alkaline Phosphatase 92 Troponin I < 0.012 Total Protein 9.0 H Albumin 4.7 Lipase 34 Procalcitonin 0.5 Urine Color Dark yellow Urine Appearance Cloudy H Urine pH 5.5 Ur Specific [place] 1.017 Urine Protein 1+ H Urine Glucose (UA) Negative Urine Ketones Trace H Ur Blood (Man) Negative Urine Nitrate Negative Urine Bilirubin Negative Urine Urobilinogen 1.0 Leukocyte Esterase Rfl 2+ H Urine RBC 3-5 H Urine WBC 11-20 H Ur Squamous Epith Cells Moderate Urine Bacteria 1+ H Urine Casts 0-2 POC Urine HCG, Qual Negative 08/28/24 08/28/24 06:18 09:18 WBC 15.6 H RBC 4.00 L Hgb 12.1 Hct 36.7 L MCV 91.8 MCH 30.3 MCHC 33.0 RDW 14.0 Plt Count 188 MPV 9.6 Immature Gran % (Auto) 0.8 H Neut % (Auto) 84.0 H Lymph % (Auto) 7.1 L Bibb % (Auto) 6.9 Eos % (Auto) 0.9 Baso % (Auto) 0.3 Lymph # (Auto) 1.11 Bibb # (Auto) 1.1 H Eos # (Auto) 0.1 Baso # (Auto) 0.0 Abs Immat Gran (auto) 0.12 H Absolute Neuts (auto) 13.1 H Absolute Nucleated RBC 0.000 Nucleated RBC % 0.0 Sodium 136 L Potassium 3.7 Chloride 105 Carbon Dioxide 23 Anion Gap 8 BUN 10 Creatinine 0.53 L Estim Creat Clear Calc 126 Estimated GFR > 60 Glucose 113 H Lactic Acid 1.1 Calcium 8.6 Magnesium 1.9 Total Bilirubin 0.7 AST 31 ALT 28 Alkaline Phosphatase 95 Troponin I Total Protein 7.0 Albumin 3.8 Lipase Procalcitonin Urine Color Urine Appearance Urine pH Ur Specific [place] Urine Protein Urine Glucose (UA) Urine Ketones Ur Blood (Man) Urine Nitrate Urine Bilirubin Urine Urobilinogen Leukocyte Esterase Rfl Urine RBC Urine WBC Ur Squamous Epith Cells Urine Bacteria Urine Casts POC Urine HCG, Qual Quality VTE Prophylaxis VTE prophylaxis: mechanical ordered
--- NOTE | 2024-08-28 16:38 | PC.NURSE ---
To OR per stretcher.
[2024-08-28] MEDS: LACTATED RINGERS 1,000 ML 30 ML IV CONT ×2 (16:50→20:08)
--- NOTE | 2024-08-28 17:20 | WPDHPUPDATE1 ---
History and Physical Update Update Date/Time: 08/28/24 17:20 History and Physical has been reviewed, including an updated exam of the patient. There are NO changes in the patient's condition. Risks, benefits, and alternatives have been discussed and questions answered. Patient agrees to proceed with procedure.
--- NOTE | 2024-08-28 17:28 | WPDANESEPPF ---
Anes - Initial Pre Proc Eval Procedure: Operation Date: 08/28/24 16:00 Proposed Procedures p Laparoscopic Cholecystectomy - Chucho Lau DO Date/Time: 08/28/24 17:28 Surgeon: Derick Junior MD Pre Op Diagnosis: acute cholecystitis Patient Data Age: 53 Gender: F Height: 1.65 m Weight: 106 kg Last Vital Signs Temp 37.1 C 08/28/24 13:59 Pulse 112 H 08/28/24 16:00 Resp 16 08/28/24 13:59 BP 112/82 08/28/24 13:59 Pulse Ox 97 08/28/24 13:59 O2 Del Method Room Air 08/28/24 07:59 Allergies Allergy/AdvReac Type Severity Reaction Status Date / Time Penicillins Allergy Unknown Peeling Verified 08/28/24 16:56 skin Home Medications ?Medication ?Instructions ?Recorded ?Confirmed ?Type cholecalciferol (vitamin D3) 50 50 mcg PO DAILY 01/16/22 08/27/24 History mcg (2,000 unit) capsule omega 0-gxf-knc-fish oil 100 1 cap PO DAILY 01/16/22 08/27/24 History mg-160 mg-1,000 mg capsule (Fish Oil) albuterol sulfate 90 mcg/actuation 2 puff inhalation .Q4 hours PRN 07/13/23 08/27/24 Rx aerosol inhaler (Ventolin HFA) cough #18 grams atorvastatin 10 mg tablet See Rx Instructions .Route 03/19/24 08/27/24 Rx .COMPLEX #90 tabs venlafaxine 37.5 mg See Rx Instructions .Route 04/06/24 08/27/24 Rx capsule,extended release 24 hr .COMPLEX #90 caps alprazolam 0.5 mg tablet 0.5 mg PO TID PRN anxiety #15 tabs 05/11/24 08/27/24 Rx Semaglutide compounded 1 unit subcut PRN 07/08/24 08/27/24 History sodium sul 1.479 gram-potas ch See Rx Instructions PO PER PKG DIR 07/23/24 08/27/24 Rx 0.188 gram-magnes sul 0.225 gram #24 tabs tablet (Sutab) spironolactone 50 mg tablet See Rx Instructions .Route 08/13/24 08/27/24 Rx .COMPLEX #180 tabs metformin 500 mg tablet,extended 1,000 mg (2 x 500 mg) PO BID #360 08/14/24 08/27/24 Rx release 24 hr tabs ketorolac 10 mg tablet 10 mg PO .COMPLEX PRN pain 5 days 08/27/24 08/27/24 Rx #21 tabs Laboratory Tests 08/27/24 08/28/24 08/28/24 15:55 06:18 09:18 WBC 15.6 H K/mm3 (4.5-10.0) RBC 4.00 L M/mm3 (4.2-5.4) Hgb 12.1 g/dL (12.0-15.0) Hct 36.7 L % (37.0-47.0) MCV 91.8 fl (80-100) MCH 30.3 pg (26-34) MCHC 33.0 g/dl (32-36) RDW 14.0 % (11.5-14.5) Plt Count 188 k/mm3 (150-375) MPV 9.6 fl (7.4-10.4) Immature Gran % (Auto) 0.8 H % (0-0.5) Neut % (Auto) 84.0 H % (45.5-73.1) Lymph % (Auto) 7.1 L % (18.3-44.2) Dunn % (Auto) 6.9 % (2.6-8.5) Eos % (Auto) 0.9 % (0-4.4) Baso % (Auto) 0.3 % (0.2-1.2) Lymph # (Auto) 1.11 K/mm3 (0.9-3.2) Dunn # (Auto) 1.1 H K/mm3 (0.1-0.6) Eos # (Auto) 0.1 K/mm3 (0-0.3) Baso # (Auto) 0.0 K/mm3 (0.0-0.1) Abs Immat Gran (auto) 0.12 H K/mm3 (0.00-0.031) Absolute Neuts (auto) 13.1 H K/mm3 (1.3-6.7) Absolute Nucleated RBC 0.000 K/mm3 (0.0-0.012) Nucleated RBC % 0.0 % (0.0-0.2) Sodium 136 L mmol/L (137-145) Potassium 3.7 mmol/L (3.4-5.0) Chloride 105 mmol/L (98-107) Carbon Dioxide 23 mmol/L (22-30) Anion Gap 8 mmol/L (4-12) BUN 10 mg/dL (7-17) Creatinine 0.53 L mg/dL (0.7-1.0) Estim Creat Clear Calc 126 ml/min Estimated GFR > 60 (59 - ) Glucose 113 H mg/dL (65-110) Lactic Acid 1.1 mmol/L (0.7-2.0) Calcium 8.6 mg/dL (8.4-10.2) Magnesium 1.9 mg/dL (1.6-2.3) Total Bilirubin 0.7 mg/dL (0.2-1.3) AST 31 U/L (14-36) ALT 28 U/L (6-35) Alkaline Phosphatase 95 U/L (38-126) Total Protein 7.0 g/dL (6.3-8.2) Albumin 3.8 g/dL (3.5-5.1) Procalcitonin 0.5 ng/mL Patient hx anesthesia problems: none Family hx anesthesia problems: none Results Review: All pre-operative results and documents have been reviewed as part of the pre-operative evaluation. [facility] Past Medical History Medical History Asthma Mixed hyperlipidemia Polycystic ovarian syndrome Surgical History Surgical History No pertinent past surgical history Family History Family History Grandparent Diabetes mellitus Social History Social History Years smoked: 12 Smoking status: Current some day smoker Tobacco type: cigarettes Second hand tobacco smoke exposure: Yes Additional smoking assessment comments: SOCIALLY since she was in her early 20's, pt states maybe once every couple Alcohol intake: current Drinks per week: 1 Alcohol use details: occasionally Substance use: never Substance use type: marijuana Last use: July 18 Do You Feel Safe in your Home?: Yes Lack of Transportation: No Lack of Food: Never True Current Housing: I Have Housing Concerned About Future Housing: No Difficulty Paying Gas/Electric Bills: No Difficulty Paying for Meds: No Currently Unemployed: No Education: High School Diploma/GED Difficulty w/ Childcare or Family Care: No Occupation/Education: occupation Gender identity (if verbalized by the patient): Female Spiritual care concerns: No Anes - Eval Final PreProcedure Day of Procedure 08/28/24 17:28 Patient weight: obese Heart: regular rate and rhythm Lungs: clear to auscultation Airway: Mallampati scale class II Neurological: alert and oriented Last oral intake: >/= 8 hours ASA classification: III Emergent: yes Anesthetic plan: proceed Anesthesia type and monitoring: general ETT and standard monitoring Results Review: All pre-operative results and documents have been reviewed as part of the pre-operative evaluation. Informed Consent: The patient's anesthetic plan and its attendant risks and benefits were discussed with the patient/family/POA. Questions were solicited and answers provided to the satisfaction of the patient/family/POA.
[2024-08-28] MEDS: BUPIVACAINE/EPINEPHRINE 0.5% 50 ML VIAL 30 ML INFILTRATE (18:55)
--- NOTE | 2024-08-28 19:54 | W.PM.PROC2 ---
Procedure Note - Detailed Date of Procedure 08/28/24 Pre-op Diagnosis acute calculous cholecystitis Post-op Diagnosis Same Procedure Performed Laparoscopic cholecystectomy Surgeon Chucho Lau, DO Anesthesia General and Local (0.5% bupivacaine) Indications This is a 53-year-old woman who presented to the emergency department last night with right upper quadrant and epigastric abdominal pain that started about 2 days prior. She continued to have worsening abdominal pain and was also experiencing nausea and vomiting. She was noted to have a significantly elevated white blood count over 20,000 in the emergency department and was also tachycardic. CT showed evidence of acute calculous cholecystitis. She was given IV fluids for resuscitation and also started on broad-spectrum IV antibiotics. Discussions were made with the patient about treatment options and decision was made to proceed with laparoscopic cholecystectomy, possible open. Findings Laparoscopic cholecystectomy was performed. Patient had an extremely dilated and indurated gallbladder. The gallbladder wall was very tense and difficult to grasp at 1st. The gallbladder was aspirated with a laparoscopic aspirating needle to help decompress the gallbladder. It was still completely packed full of stones which still made it difficult to grasp and manipulate. There were also many pericholecystic adhesions around the gallbladder which fortunately came down very easily with blunt dissection. It appeared to be slightly softer near the infundibulum and neck of the gallbladder. I was able to identify the cystic duct which appeared normal in size. The gallbladder was removed and sent to the lab for pathology. There was some bleeding along the gallbladder fossa which appeared to be minor after the gallbladder was removed. Most of this appeared to be reactive hyperemia due to the acute inflammation. Surgiflo was sprayed along the gallbladder fossa to help with hemostasis. Description of Procedure Procedure as well as risks, benefits, and alternatives were discussed with patient. Written consent was obtained and placed in chart prior to procedure. The patient was brought back to surgical suite. Patient was placed in supine position on operating table. Time-out was done to confirm patient and procedure. Patient was then intubated by the anesthesia department. Abdomen was prepped and draped in sterile fashion using chlorhexidine prep. 0.5% bupivacaine with epinephrine was infiltrated at each site of incision. A 5 millimeter incision was made near the umbilicus, and a 5 millimeter Optiview trocar was advanced through the abdominal layers under direct visualization. Once inside the abdominal cavity, carbon dioxide was insufflated to create a pneumoperitoneum. The camera was inserted and the abdomen was inspected. No immediate abnormalities were identified. The patient was placed in reverse Trendelenburg position and rotated slightly to the left. An 11 millimeter incision was made in the subxiphoid region, and an 11 millimeter trocar was inserted under direct visualization. Two 5 millimeter incisions were made in the right upper quadrant, and two 5 millimeter trocars were inserted under direct visualization. The gallbladder was identified and grasped at the fundus and retracted superiorly. There were many pericholecystic adhesions that were carefully taken down using blunt dissection with a [place] grasper and suction deburrer machine. It was then grasped at the infundibulum retracted laterally. Careful dissection around the neck of the gallbladder was performed using blunt dissection with a [place] grasper and hook electrocautery. The cystic duct was identified, and a window was created behind it. The cystic artery was also identified and a window was created behind it. The critical view of safety was identified, visualizing the cystic duct running directly into the neck of the gallbladder, and the cystic artery running directly into the wall of the gallbladder. A 5 millimeter clip plastic design applier was then used to place 2 clips proximally and 1 clip distally on both the cystic duct and cystic artery. They were then both transected using endoscopic scissors. Once safely away from the vivek hepatitis, the gallbladder was dissected free from the liver bed using hook electrocautery. Hemostasis was achieved along the way. The gallbladder was removed completely and then removed through the subxiphoid port. The subxiphoid port had to be extended to about 5 cm in length to adequately dilate the fascia and deliver the gallbladder through this port site. The liver bed was then inspected. There was some bleeding along the gallbladder fossa that initially was controlled with hemostasis. I then sprayed Surgiflo along this area to help with hemostasis. Hemostasis appeared adequate, and our clips appeared secure. The area was gently irrigated with sterile saline. No other abnormalities were seen. The patient was flattened out in bed, and 1 final inspection was made around the abdominal cavity. The subxiphoid port was removed, and a Adolfo Wero cone was used to approximate the fascia with an 0-Vicryl simple interrupted suture. The remaining ports were then removed under direct visualization, the camera was removed, and the pneumoperitoneum was released. The skin of the incisions was approximated using 4-0 Monocryl subcuticular sutures. Exofin glue was applied on top. The patient was then awakened from anesthesia, extubated, and transferred to recovery. Estimated Blood Loss 50 Pathology Yes (Gallbladder) Complications No immediate complications Condition Stable Disposition Floor [facility] Billing Surgery - Charge Forward: Surgery Billing
[2024-08-28] MEDS: fentaNYL CITRATE INJ (*CRX) 100 MCG/2 ML VIAL 25 MCG IV PUSH ×4 (20:13→20:53)
[2024-08-28] MEDS: ONDANSETRON INJ 4 MG/2 ML VIAL IV PUSH (20:21)
[2024-08-28] MEDS: MORPHINE SULFATE (*CRX) 2 MG/ML INJ IV PUSH (21:48)
[2024-08-28] MEDS: VENLAFAXINE HCL XR 37.5 MG CAP PO (21:50)
[2024-08-29] VITALS: PULSE 105
[2024-08-29] MEDS: HYDROcodone/acetaminophen (*CRX) 10-325 MG TABLET 1 TAB PO ×3 (01:05→09:38)
[2024-08-29] MEDS: SODIUM CHLORIDE 0.9% IV 1,000 ML 125 ML IV CONT (03:01)
[2024-08-29 04:00] VITALS: BP 143/88; PULSE 100; PULSE 94; RESP 18; TEMP 36.4; O2SAT 94
[2024-08-29 05:54] LABS: Basophils Percent Auto 0.1 % (0.2-1.2); Hematocrit 33.2 % (37.0-47.0); Hemoglobin 11.1 g/dL (12.0-15.0); Immature Granulocyte Absolute 0.07 K/mm3 (0.00-0.031); Immature Granulocyte Percent A 0.6 % (0-0.5); Lymphocytes Absolute Auto 0.56 K/mm3 (0.9-3.2); Lymphocytes Percent Auto 4.6 % (18.3-44.2); Mean Corpuscular HGB Conc 33.4 g/dl (32-36); Mean Corpuscular Hemoglobin 30.8 pg (26-34); Mean Corpuscular Volume 92.2 fl (80-100); Mean Platelet Volume 9.7 fl (7.4-10.4); Monocytes Absolute Auto 0.4 K/mm3 (0.1-0.6); Monocytes Percent Auto 3.1 % (2.6-8.5); Neutrophils Absolute Auto 11.1 K/mm3 (1.3-6.7); Neutrophils Percent Auto 91.6 % (45.5-73.1); Platelet Count Result 201 k/mm3 (150-375); Red Cell Distribution Width 13.7 % (11.5-14.5); White Blood Count 12.1 K/mm3 (4.5-10.0)
[2024-08-29] MEDS: metroNIDAZOLE 500 MG/ISO 100ML 500 MG/100 ML BAG 100 MG IVPB (06:00)
[2024-08-29 06:04] LABS: Alanine Aminotransferase 35 U/L (6-35); Albumin Level 3.7 g/dL (3.5-5.1); Alkaline Phosphatase 97 U/L (38-126); Anion Gap 10 mmol/L (4-12); Aspartate Amino Transferase 37 U/L (14-36); Bilirubin,Total 0.3 mg/dL (0.2-1.3); Blood Urea Nitrogen 11 mg/dL (7-17); Calcium 8.6 mg/dL (8.4-10.2); Carbon Dioxide 23 mmol/L (22-30); Chloride 106 mmol/L (98-107); Estimated CRCL calculation 138 ml/min; Estimated Glomerular Filt Rate > 60; Glucose 134 mg/dL (65-110); Potassium 4.1 mmol/L (3.4-5.0); Sodium 139 mmol/L (137-145)
[2024-08-29 08:00] VITALS: PULSE 84; O2SAT 94
[2024-08-29] MEDS: SPIRONOLACTONE 50 MG TABLET PO (09:38)
[2024-08-29] MEDS: ENOXAPARIN 40 MG/0.4 ML SYRINGE SUB-Q (09:38)
--- NOTE | 2024-08-29 10:29 | PM.IMPN ---
Subjective Date/time seen: 08/29/24 10:29 Review of Systems Review of Systems: All systems reviewed & are unremarkable except as noted in HPI and below Objective Data Vital Signs Vital Signs: Vital Signs - 24 hr 08/28/24 12:00 08/28/24 13:59 08/28/24 16:00 Temperature 98.8 F Pulse Rate 114 H 113 H 112 H Respiratory Rate 16 Blood Pressure 112/82 Pulse Oximetry 97 Oxygen Delivery Oxygen Flow Rate 08/28/24 19:49 08/28/24 20:00 08/28/24 20:09 Temperature 98.4 F Pulse Rate 107 H 106 H 108 H Respiratory Rate 22 H 15 14 Blood Pressure 117/80 106/76 115/70 Pulse Oximetry 97 94 100 Oxygen Delivery Simple Face Mask Simple Face Mask Simple Face Mask Oxygen Flow Rate 8 8 8 08/28/24 20:20 08/28/24 20:25 08/28/24 20:35 Temperature 97.3 F L Pulse Rate 106 H 106 H 107 H Respiratory Rate 16 12 14 Blood Pressure 125/85 129/89 132/87 Pulse Oximetry 100 95 94 Oxygen Delivery Simple Face Mask Room Air Room Air Oxygen Flow Rate 8 08/28/24 20:45 08/28/24 20:53 08/28/24 21:05 Temperature 97.0 F L Pulse Rate 105 H 103 H 99 Respiratory Rate 14 14 12 Blood Pressure 132/83 128/86 116/81 Pulse Oximetry 92 96 97 Oxygen Delivery Room Air Room Air Room Air Oxygen Flow Rate 08/28/24 21:14 08/28/24 21:29 08/28/24 21:56 Temperature 96.4 F L 96.7 F L 96.5 F L Pulse Rate 109 H 104 H 103 H Respiratory Rate 18 20 16 Blood Pressure 148/84 H 146/97 H 145/79 H Pulse Oximetry 94 94 95 Oxygen Delivery Oxygen Flow Rate 08/28/24 22:00 08/28/24 22:56 08/29/24 00:00 Temperature 96 F L Pulse Rate 106 H 97 105 H Respiratory Rate 16 Blood Pressure 136/83 Pulse Oximetry 92 Oxygen Delivery Oxygen Flow Rate 08/29/24 04:00 08/29/24 04:00 08/29/24 08:00 Temperature 97.5 F L Pulse Rate 100 94 Respiratory Rate 18 Blood Pressure 143/88 H Pulse Oximetry 94 94 Oxygen Delivery Room Air Oxygen Flow Rate 08/29/24 08:00 Temperature Pulse Rate 84 Respiratory Rate Blood Pressure Pulse Oximetry Oxygen Delivery Oxygen Flow Rate Intake/Output Intake/Output: Intake & Output 08/26/24 08/27/24 08/28/24 08/29/24 23:59 23:59 23:59 23:59 Intake Total 3150 3050 550 Balance 3150 3050 550 Meds/Results Medications: Active Medications Generic Name Dose Route Start Last Admin Trade Name Freq PRN Reason Stop Dose Admin Hydrocodone Bitart/Acetaminophen 1 tab 08/28/24 21:11 Hydrocodone/Acetaminophen (*Crx) 5-325 Mg Tablet PO Q4H PRN Pain Rated 4-6 Hydrocodone Bitart/Acetaminophen 1 tab 08/28/24 21:11 08/29/24 09:38 Hydrocodone/Acetaminophen (*Crx) 10-325 Mg Tablet PO 1 tab Q4H PRN Administration Pain Rated 7-10 Albuterol 2 puff 08/28/24 00:00 Albuterol Sulfate (*Sp) Aerosol 1 Puff INHALATION Q4HRT PRN cough Alprazolam 0.5 mg 08/28/24 00:00 Alprazolam (*Crx) 0.5 Mg Tablet PO TID PRN anxiety Diphenhydramine HCl 25 mg 08/28/24 21:11 Diphenhydramine Hcl Inj 50 Mg/Ml Vial IV PUSH Q6H PRN Itching Enoxaparin Sodium 40 mg 08/29/24 09:00 08/29/24 09:38 Enoxaparin 40 Mg/0.4 Ml Syringe SUB-Q 40 mg DAILY YULY Administration Sodium Chloride 1,000 mls @ 125 mls/hr 08/27/24 19:05 08/29/24 09:38 Normal Saline Iv IV CONT Not Given .Q8H YULY Ceftriaxone Sodium 1 gm in 50 mls @ 100 mls/hr 08/28/24 18:00 08/28/24 17:53 Rocephin 1 Gm/Ns 50 Ml IVPB Infused Q24H YULY Infusion Metronidazole 500 mg in 100 mls @ 100 mls/hr 08/28/24 06:00 08/29/24 07:00 Flagyl 500 Mg/Iso Soln 100 Ml IVPB Infused Q8H YULY Infusion Ibuprofen 600 mg 08/28/24 21:11 Ibuprofen 600 Mg Tablet PO Q6H PRN Pain Rated 1-3 Morphine Sulfate 2 mg 08/28/24 21:11 08/28/24 21:48 Morphine Sulfate (*Crx) 2 Mg/Ml Inj IV PUSH 2 mg Q2H PRN Administration Breakthrough Pain Rated 4-6 or NPO Morphine Sulfate 4 mg 08/28/24 21:11 Morphine Sulfate (*Crx) 4 Mg/Ml Inj IV PUSH Q2H PRN Breakthrough Pain Rated 7-10 or NPO Naloxone HCl 0.1 mg 08/28/24 21:11 Naloxone Hcl 0.4 Mg/Ml Vial IV PUSH Q2M PRN Opiate Reversal Ondansetron HCl 4 mg 08/28/24 21:11 Ondansetron Inj 4 Mg/2 Ml Vial IV PUSH Q4H PRN Nausea And Vomiting Spironolactone 50 mg 08/28/24 09:00 08/29/24 09:38 Spironolactone 50 Mg Tablet PO 50 mg BID YULY Administration Venlafaxine HCl 37.5 mg 08/28/24 21:00 08/28/24 21:50 Venlafaxine Hcl Xr 37.5 Mg Cap PO 37.5 mg QHS YULY Administration Radiology Results: ITS Impressions Abdomen/Pelvis CT 08/27/24 18:45 IMPRESSION: Findings consistent with acute cholecystitis, as detailed above. Abdomen Ultrasound 08/27/24 20:08 IMPRESSION: Acute cholecystitis, unchanged from CT examination performed less than an hour earlier Labs Labs: Laboratory Results - last 24 hr 08/29/24 05:32 WBC 12.1 H RBC 3.60 L Hgb 11.1 L Hct 33.2 L MCV 92.2 MCH 30.8 MCHC 33.4 RDW 13.7 Plt Count 201 MPV 9.7 Immature Gran % (Auto) 0.6 H Neut % (Auto) 91.6 H Lymph % (Auto) 4.6 L [place] % (Auto) 3.1 Eos % (Auto) 0.0 Baso % (Auto) 0.1 L Lymph # (Auto) 0.56 L [place] # (Auto) 0.4 Eos # (Auto) 0.0 Baso # (Auto) 0.0 Abs Immat Gran (auto) 0.07 H Absolute Neuts (auto) 11.1 H Absolute Nucleated RBC 0.000 Nucleated RBC % 0.0 Sodium 139 Potassium 4.1 Chloride 106 Carbon Dioxide 23 Anion Gap 10 BUN 11 Creatinine 0.48 L Estim Creat Clear Calc 138 Estimated GFR > 60 Glucose 134 H Calcium 8.6 Total Bilirubin 0.3 AST 37 H ALT 35 Alkaline Phosphatase 97 Total Protein 7.0 Albumin 3.7
[2024-08-29 12:00] VITALS: PULSE 86
--- NOTE | 2024-08-29 12:37 | P.PNGS_ITS ---
Progress Note: A&P Assessment and Plan (1) Acute cholecystitis: Code(s): K81.0 - Acute cholecystitis Status: Acute Assessment and Plan: * Doing well on POD#1. OK to discharge from surgical standpoint * Cipro and [place] prescriptions sent to pharmacy * Follow up in office in 2 weeks (2) Sepsis: Qualifiers: Sepsis type: sepsis due to unspecified organism Sepsis acute organ dysfunction status: without acute organ dysfunction Qualified Code(s): A41.9 - Sepsis, unspecified organism Code(s): A41.9 - Sepsis, unspecified organism Status: Acute Subjective Subjective Date/Time Seen: 08/29/24 12:37 Interval history: Pain improved. Tolerating diet. No nausea or vomiting. Exam GI: Inspection: non-distended and incision (Intact with glue) GI Palp: Yes Soft to palpation, Yes Tenderness to palpation present (GI) (Incisional), No Guarding due to palpation present (GI) and No Rebound tenderness present Auscultation: normal bowel sounds Objective Data Vital Signs Vital Signs: Vital Signs - 24 hr 08/28/24 13:59 08/28/24 16:00 08/28/24 19:49 Temperature 98.8 F 98.4 F Pulse Rate 113 H 112 H 107 H Respiratory Rate 16 22 H Blood Pressure 112/82 117/80 Pulse Oximetry 97 97 Oxygen Delivery Simple Face Mask Oxygen Flow Rate 8 08/28/24 20:00 08/28/24 20:09 08/28/24 20:20 Temperature Pulse Rate 106 H 108 H 106 H Respiratory Rate 15 14 16 Blood Pressure 106/76 115/70 125/85 Pulse Oximetry 94 100 100 Oxygen Delivery Simple Face Mask Simple Face Mask Simple Face Mask Oxygen Flow Rate 8 8 8 08/28/24 20:25 08/28/24 20:35 08/28/24 20:45 Temperature 97.3 F L Pulse Rate 106 H 107 H 105 H Respiratory Rate 12 14 14 Blood Pressure 129/89 132/87 132/83 Pulse Oximetry 95 94 92 Oxygen Delivery Room Air Room Air Room Air Oxygen Flow Rate 08/28/24 20:53 08/28/24 21:05 08/28/24 21:14 Temperature 97.0 F L 96.4 F L Pulse Rate 103 H 99 109 H Respiratory Rate 14 12 18 Blood Pressure 128/86 116/81 148/84 H Pulse Oximetry 96 97 94 Oxygen Delivery Room Air Room Air Oxygen Flow Rate 08/28/24 21:29 08/28/24 21:56 08/28/24 22:00 Temperature 96.7 F L 96.5 F L Pulse Rate 104 H 103 H 106 H Respiratory Rate 20 16 Blood Pressure 146/97 H 145/79 H Pulse Oximetry 94 95 Oxygen Delivery Oxygen Flow Rate 08/28/24 22:56 08/29/24 00:00 08/29/24 04:00 Temperature 96 F L 97.5 F L Pulse Rate 97 105 H 100 Respiratory Rate 16 18 Blood Pressure 136/83 143/88 H Pulse Oximetry 92 94 Oxygen Delivery Oxygen Flow Rate 08/29/24 04:00 08/29/24 08:00 08/29/24 08:00 Temperature Pulse Rate 94 84 Respiratory Rate Blood Pressure Pulse Oximetry 94 Oxygen Delivery Room Air Oxygen Flow Rate 08/29/24 12:00 Temperature Pulse Rate 86 Respiratory Rate Blood Pressure Pulse Oximetry Oxygen Delivery Oxygen Flow Rate Intake/Output Intake/Output: Intake & Output 08/26/24 08/27/24 08/28/24 08/29/24 23:59 23:59 23:59 23:59 Intake Total 3150 3050 1300 Balance 3150 3050 1300 Meds/Results Medications: Active Medications Generic Name Dose Route Start Last Admin Trade Name Freq PRN Reason Stop Dose Admin Hydrocodone Bitart/Acetaminophen 1 tab 08/28/24 21:11 Hydrocodone/Acetaminophen (*Crx) 5-325 Mg Tablet PO Q4H PRN Pain Rated 4-6 Hydrocodone Bitart/Acetaminophen 1 tab 08/28/24 21:11 08/29/24 09:38 Hydrocodone/Acetaminophen (*Crx) 10-325 Mg Tablet PO 1 tab Q4H PRN Administration Pain Rated 7-10 Albuterol 2 puff 08/28/24 00:00 Albuterol Sulfate (*Sp) Aerosol 1 Puff INHALATION Q4HRT PRN cough Alprazolam 0.5 mg 08/28/24 00:00 Alprazolam (*Crx) 0.5 Mg Tablet PO TID PRN anxiety Diphenhydramine HCl 25 mg 08/28/24 21:11 Diphenhydramine Hcl Inj 50 Mg/Ml Vial IV PUSH Q6H PRN Itching Enoxaparin Sodium 40 mg 08/29/24 09:00 08/29/24 09:38 Enoxaparin 40 Mg/0.4 Ml Syringe SUB-Q 40 mg DAILY YULY Administration Ceftriaxone Sodium 1 gm in 50 mls @ 100 mls/hr 08/28/24 18:00 08/28/24 17:53 Rocephin 1 Gm/Ns 50 Ml IVPB Infused Q24H YULY Infusion Metronidazole 500 mg in 100 mls @ 100 mls/hr 08/28/24 06:00 08/29/24 07:00 Flagyl 500 Mg/Iso Soln 100 Ml IVPB Infused Q8H YULY Infusion Ibuprofen 600 mg 08/28/24 21:11 Ibuprofen 600 Mg Tablet PO Q6H PRN Pain Rated 1-3 Morphine Sulfate 2 mg 08/28/24 21:11 08/28/24 21:48 Morphine Sulfate (*Crx) 2 Mg/Ml Inj IV PUSH 2 mg Q2H PRN Administration Breakthrough Pain Rated 4-6 or NPO Morphine Sulfate 4 mg 08/28/24 21:11 Morphine Sulfate (*Crx) 4 Mg/Ml Inj IV PUSH Q2H PRN Breakthrough Pain Rated 7-10 or NPO Naloxone HCl 0.1 mg 08/28/24 21:11 Naloxone Hcl 0.4 Mg/Ml Vial IV PUSH Q2M PRN Opiate Reversal Ondansetron HCl 4 mg 08/28/24 21:11 Ondansetron Inj 4 Mg/2 Ml Vial IV PUSH Q4H PRN Nausea And Vomiting Spironolactone 50 mg 08/28/24 09:00 08/29/24 09:38 Spironolactone 50 Mg Tablet PO 50 mg BID YULY Administration Venlafaxine HCl 37.5 mg 08/28/24 21:00 08/28/24 21:50 Venlafaxine Hcl Xr 37.5 Mg Cap PO 37.5 mg QHS YULY Administration Radiology Results: ITS Impressions Abdomen/Pelvis CT 08/27/24 18:45 IMPRESSION: Findings consistent with acute cholecystitis, as detailed above. Abdomen Ultrasound 08/27/24 20:08 IMPRESSION: Acute cholecystitis, unchanged from CT examination performed less than an hour earlier Labs Labs: Laboratory Results - last 24 hr 08/29/24 05:32 WBC 12.1 H RBC 3.60 L Hgb 11.1 L Hct 33.2 L MCV 92.2 MCH 30.8 MCHC 33.4 RDW 13.7 Plt Count 201 MPV 9.7 Immature Gran % (Auto) 0.6 H Neut % (Auto) 91.6 H Lymph % (Auto) 4.6 L [place] % (Auto) 3.1 Eos % (Auto) 0.0 Baso % (Auto) 0.1 L Lymph # (Auto) 0.56 L [place] # (Auto) 0.4 Eos # (Auto) 0.0 Baso # (Auto) 0.0 Abs Immat Gran (auto) 0.07 H Absolute Neuts (auto) 11.1 H Absolute Nucleated RBC 0.000 Nucleated RBC % 0.0 Sodium 139 Potassium 4.1 Chloride 106 Carbon Dioxide 23 Anion Gap 10 BUN 11 Creatinine 0.48 L Estim Creat Clear Calc 138 Estimated GFR > 60 Glucose 134 H Calcium 8.6 Total Bilirubin 0.3 AST 37 H ALT 35 Alkaline Phosphatase 97 Total Protein 7.0 Albumin 3.7
--- NOTE | 2024-08-29 13:05 | P.DS_ITS ---
DS: Admitting Diagnosis Discharge Date 08/29/2024 Admitting Diagnosis Abdominal pain DS: Discharge Diagnosis Discharge Diagnosis (1) Sepsis: Qualifiers: Sepsis type: sepsis due to unspecified organism Sepsis acute organ dysfunction status: without acute organ dysfunction Qualified Code(s): A41.9 - Sepsis, unspecified organism Code(s): A41.9 - Sepsis, unspecified organism Status: Acute (2) Acute cholecystitis: Code(s): K81.0 - Acute cholecystitis Status: Acute (3) UTI (urinary tract infection): Qualifiers: Urinary tract infection type: acute cystitis Hematuria presence: without hematuria Qualified Code(s): N30.00 - Acute cystitis without hematuria Code(s): N39.0 - Urinary tract infection, site not specified Status: Acute DS: Summary Hospital Course Hospital Course: Initial VS at presentation: 97.8? F, HR 135, R 16, 130/91, 98% on RA. ED workup showed: WBC 24.1, no anemia, sodium 136, creatinine 0.62 and GFR >60, glucose 138, total bilirubin 1.4 with normal LFTs, initial troponin negative, UA suspicious for UTI however there are moderate epithelial cells recent concerns for contamination. HCG negative. CT of the abdomen/pelvis and ultrasound of the abdomen showed acute cholecystitis. 08/28/24: Laparoscopic cholecystectomy. 08/29/24: IV antibiotics (Ceftriaxone and Metronidazole) transitioned to oral Cipro antibiotics. Blood cultures no growth to date. Urine culture pending. WBC improved from 24.1>12.1. Status at Discharge Functional status at discharge: independent ambulation Overall status at discharge: patient is progressing back to baseline Time Spent with Patient Time attestation: Total time spent providing and/or coordinating discharge services: Time spent: Greater than 30 minutes Exam Const: General: no acute distress and uncomfortable Resp: Effort & Inspection: normal respiratory effort Auscultation: clear to auscultation bilaterally Cardio: Rate: regular rate Rhythm: regular rhythm GI: GI Palp: Yes Soft to palpation Auscultation: normal bowel sounds Other: laparoscopic abdominal incisions glue intact, no redness, swelling, or drainage. Extrem: General: no pedal edema Psych: Mental Status: mental status grossly normal Affect: normal affect DS: Data Data Completed and Pending Pending studies at discharge: Pending at discharge 08/28/24 18:52 Surgical [PTH] Routine Labs on day of discharge: Labs from last 24 hours 08/29/24 05:32 WBC 12.1 H RBC 3.60 L Hgb 11.1 L Hct 33.2 L MCV 92.2 MCH 30.8 MCHC 33.4 RDW 13.7 Plt Count 201 MPV 9.7 Immature Gran % (Auto) 0.6 H Neut % (Auto) 91.6 H Lymph % (Auto) 4.6 L [place] % (Auto) 3.1 Eos % (Auto) 0.0 Baso % (Auto) 0.1 L Lymph # (Auto) 0.56 L [place] # (Auto) 0.4 Eos # (Auto) 0.0 Baso # (Auto) 0.0 Abs Immat Gran (auto) 0.07 H Absolute Neuts (auto) 11.1 H Absolute Nucleated RBC 0.000 Nucleated RBC % 0.0 Sodium 139 Potassium 4.1 Chloride 106 Carbon Dioxide 23 Anion Gap 10 BUN 11 Creatinine 0.48 L Estim Creat Clear Calc 138 Estimated GFR > 60 Glucose 134 H Calcium 8.6 Total Bilirubin 0.3 AST 37 H ALT 35 Alkaline Phosphatase 97 Total Protein 7.0 Albumin 3.7 Preliminary micro results at discharge 08/27/24 18:28 Blood Culture - Preliminary Blood 08/27/24 18:37 Blood Culture - Preliminary Blood Discharge Plan Discharge Attending physician on discharge: Derick Junior Consulting providers: Chucho Vega Discharging Clinician: Gregoria Ortiz Anticipated Discharge Date/Time: 08/29/24 13:30 Patient Disposition: Home Activity: may shower and other - see discharge instructions Diet: low fat Wound Care Instructions: other - see discharge instructions Discharge Instructions: DISCHARGE INSTRUCTION SHEET FOR HERNIA, GALLBLADDER AND APPENDIX SURGERIES DR. VEGA PATIENT TO TAKE HOME 1. May shower, no soaking in bath x 2weeks. 2. Call office for: * Wound increasingly painful or bleeding * Vomiting * Fever of greater than 101 degrees 3. If no bowel movement for three days, take 1 oz. (30 ml) Milk of Magnesia or MiraLax 17g 1 to 2 times daily. 4. No heavy lifting > 10-15 pounds x weeks for hernia repairs and 2 weeks for laparoscopic cholecystectomy or appendectomy. 5. No driving for 3 days or while taking narcotic pain medications. 6. Ice to surgical site for 48 hours (30 min on, then 30 min off). 7. Up walking 10-30 minutes three times per day. 8. Resume previous home medications. 9. Follow-up 10-14 days in office for wound check or as previously scheduled. ([phone]) 10. Oral pain medications prescription to be sent to pharmacy. Take Tylenol 500mg every 6 hours and Ibuprofen 600mg every 6 hours for the first 2 days, then as needed. 11. NUTRITION: Start out by drinking fluids and increase your diet as tolerated. If you experience nausea, try dry toast, crackers, and 7-UP. If nausea or vomiting persists, contact your surgeon?s office. 12. Gallbladders-Low Fat Diet for 2 weeks (send care note of low fat diet) 13. Inguinal Hernias-wear scrotal support for 48 hours 14. Abdominal Hernias-if sent home with abdominal binder, wear for the first 2 weeks (may remove to shower or at night to sleep). Thank you for entrusting [facility] with your healthcare! Revised August 2018 Patient Instructions: Antibiotic Form, Low Fat Diet (DC), Opioid Safety (DC), Laparoscopic Cholecystectomy (DC) Patient Language: Croatian Stand Alone Forms: General Discharge Information Follow-up/Referrals: Freida Betts MD [Primary Care Provider] - 1 Week Chucho Vega DO [Physician] - 2 Weeks Discharge Medications: New hydrocodone-acetaminophen 5-325 mg tablet 1 tablet PO Q4H PRN (Reason: pain) Qty: 10 0RF ciprofloxacin HCl [Cipro] 500 mg tablet 500 mg PO Q12H 7 Days Qty: 14 0RF Continued albuterol sulfate [Ventolin HFA] 90 mcg/actuation HFA aerosol inhaler 2 puff INHALATION .Q4 hours PRN (Reason: cough) Qty: 18 0RF Semaglutide compounded 1 unit subcut PRN Patient Comments: roughly 2 weeks ago. Takes for weight loss cholecalciferol (vitamin D3) 50 mcg (2,000 unit) capsule 50 mcg PO DAILY Fish Oil 100-160-1,000 mg capsule 1 cap PO DAILY atorvastatin 10 mg tablet See Rx Instructions .ROUTE .COMPLEX Qty: 90 1RF Dose Instruction: TAKE ONE TABLET BY MOUTH ONCE DAILY Rx Instructions: TAKE ONE TABLET BY MOUTH ONCE DAILY venlafaxine 37.5 mg capsule,extended release 24hr See Rx Instructions .ROUTE .COMPLEX Qty: 90 1RF Dose Instruction: TAKE 1 CAPSULE BY MOUTH EVERY DAY Patient Comments: Takes at night Rx Instructions: TAKE 1 CAPSULE BY MOUTH EVERY DAY alprazolam 0.5 mg tablet 0.5 mg PO TID PRN (Reason: anxiety) Qty: 15 0RF Sutab 1.479-0.188- 0.225 gram tablet See Rx Instructions PO PER PKG DIR Qty: 24 0RF Patient Comments: Takes mag supplement, unsure what this combo is Rx Instructions: PO PER PKG DIR spironolactone 50 mg tablet See Rx Instructions .ROUTE .COMPLEX Qty: 180 3RF Dose Instruction: TAKE 1 TABLET BY MOUTH TWICE A DAY Rx Instructions: TAKE 1 TABLET BY MOUTH TWICE A DAY metformin 500 mg tablet extended release 24 hr 1,000 mg PO BID Qty: 360 3RF ketorolac 10 mg tablet 10 mg PO .COMPLEX PRN (Reason: pain) 5 Days Qty: 21 0RF Rx Instructions: 10 mg orally PRN; Dose: 10 mg PO q4-6h; Start: 20 mg PO x1; Not to exceed 40 mg /day Date of admission: 08/27/24 19:02 Primary Care Provider: Freida Betts Admitting Provider: Derick Junior Attending physician on admission: Derick Junior Condition: Improved Hospitalist MIPS Heart Failure (Exclusion) Patient has history of Heart Transplant or Left Ventricular Assistive Device?: No IF YES, STOP HERE Heart Failure (Qualifier) Patient has current or prior documentation of LVEF less than or equal to 40%, or mod/servere depressed LVSF?: No IF NO, STOP HERE
== END 2024-08-29 13:30 | disposition home or self-care (01) ==
LOC: ANHED 19:33 → ANH3MEDSUR 19:50
PROVIDERS: Nurse Practitioner Family; Physician Assistant; Student in an Organized Health Care Education/Training Program; Surgery; Admitting Provider Family Medicine; Emergency Provider Physician Assistant; PCP Family Medicine; Visit Provider Family Medicine
PROC: 0FT44ZZ Resection of Gallbladder, Percutaneous Endoscopic Approach (ICD-10-PCS; CPT 47562; principal; 2024-08-28 16:00)
DX: A41.9 Sepsis, unspecified organism (principal); K80.00 Calculus of gallbladder with acute cholecystitis without obstruction; K82.8 Other specified diseases of gallbladder; N30.00 Acute cystitis without hematuria; E88.810 Metabolic syndrome; E66.9 Obesity, unspecified; Z68.38 Body mass index [BMI] 38.0-38.9, adult; E78.2 Mixed hyperlipidemia; J45.909 Unspecified asthma, uncomplicated; E28.2 Polycystic ovarian syndrome; F17.210 Nicotine dependence, cigarettes, uncomplicated; Z79.51 Long term (current) use of inhaled steroids; Z79.84 Long term (current) use of oral hypoglycemic drugs; Z79.899 Other long term (current) drug therapy
CPT/HCPCS: 47562; 36415; 74177; 76705; 80053; 81001; 81025; 83605; 83690; 83735; 84145; 84484; 85025; 87040; 87086; 88304; 93005; 96361; 96365; 96375; 99285; A9270; G0378; J0696; J1100; J1650; J1836; J1885; J2003; J2250; J2270; J2405; J2704; J3010; J7030; J7120; Q9967

== ENCOUNTER 2024-12-18 00:20 | Day surgery (SDC) | payer OTHER, SELFPAY ==
--- NOTE | 2024-10-19 10:01 | PC.NURSE ---
called pt for pat colonoscopy on october 29, 2024. 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 she is going to discuss with her mother and call back. gave her the number to call if she decides to reschedule.
[2024-12-10 10:08] VITALS: BMI 39.6
[2024-12-18 08:43] VITALS: BP 134/99; PULSE 118; RESP 16; TEMP 36.3; O2SAT 98
[2024-12-18] MEDS: LACTATED RINGERS 1,000 ML 150 ML IV CONT (08:56)
--- NOTE | 2024-12-18 09:16 | P.PNAN_ITS ---
Anes - Initial Pre Proc Eval Procedure: Operation Date: 12/18/24 09:30 Proposed Procedures p Screening Colonoscopy - Rakesh Schroeder MD Date/Time: 12/18/24 09:16 Surgeon: Rakesh Schroeder MD Pre Op Diagnosis: Encounter for screening for malignant neoplasm of Patient Data Age: 54 Gender: F Height: 1.65 m Weight: 102.4 kg Last Vital Signs Temp 36.3 C L 12/18/24 08:43 Pulse 118 H 12/18/24 08:43 Resp 16 12/18/24 08:43 BP 134/99 H 12/18/24 08:43 Pulse Ox 98 12/18/24 08:43 O2 Del Method Room Air 12/18/24 08:43 Allergies Allergy/AdvReac Type Severity Reaction Status Date / Time Penicillins Allergy Unknown Peeling Verified 12/18/24 08:40 skin Home Medications ?Medication ?Instructions ?Recorded ?Confirmed ?Type omega 1-btn-iqd-fish oil 100 1 cap PO DAILY 01/16/22 0 12/18/24 History mg-160 mg-1,000 mg capsule (Fish Oil) albuterol sulfate 90 mcg/actuation 2 puff inhalation . Q4 hours PRN 07/13/23 12/18/24 Rx aerosol inhaler (Ventolin HFA) cough #18 grams alprazolam 0.5 mg tablet 0.5 mg PO TID PRN anxiety #1 5 tabs 05/11/24 12/18/24 Rx Semaglutide compounded 1 unit subcut WEEKLY 5 12/18/24 History sodium sul 1.479 gram-potas ch See Rx Instructions PO PER PKG DIR 07/23/24 12/18/24 Rx 0.188 gram-magnes sul 0.225 gram #24 tabs tablet (Sutab) spironolactone 50 mg tablet See Rx Instructions .Route 08/13/24 12/18/24 Rx .COMPLEX #180 tabs metformin 500 mg tablet,extended 1,000 mg (2 x 500 mg) PO BID #360 08/14/24 12/18/24 Rx release 24 hr tabs atorvastatin 10 mg tablet See Rx Instructions .Route 0 09/21/24 12/10/24 Rx .COMPLEX #90 tabs venlafaxine 37.5 mg See Rx Instructions .Route 0 10/05/24 12/18/24 Rx capsule,extended release 24 hr .COMPLEX #90 caps ondansetron HCl 4 mg tablet 4 mg PO Q6H PRN nausea and 10/26/24 Rx vomiting #4 tabs sodium,potassium,mag sulfates 17.5 See Rx Instructions PO .COMPLEX 10/26/24 Rx gram-3.13 gram-1.6 gram oral soln #354 mL (Suprep Bowel Prep Kit) Laboratory Tests 12/18/24 08:53 POC Capillary Glucose 100 mg/dl (65-105) Patient hx anesthesia problems: none Family hx anesthesia problems: none Results Review: All pre-operative results and documents have been reviewed as part of the pre- operative evaluation. [facility] Past Medical History Medical History Acute cholecystitis Sepsis Asthma Mixed hyperlipidemia Polycystic ovarian syndrome Surgical History Surgical History Hx laparoscopic cholecystectomy 08/28/[address] Lau Family History Family History Grandparent Diabetes mellitus Social History Social History Years smoked: 15 Smoking status: Former smoker Tobacco type: cigarettes Second hand tobacco smoke exposure: Yes Additional smoking assessment comments: SOCIALLY since she was in her early 20's, pt states maybe once every couple Alcohol intake: current Drinks per week: 1 Alcohol use details: occasionally Substance use: never Substance use type: marijuana Last use: July 18 Do You Feel Safe in your Home?: Yes Lack of Transportation: No Lack of Food: Never True Current Housing: I Have Housing Concerned About Future Housing: No Difficulty Paying Gas/Electric Bills: No Difficulty Paying for Meds: No Currently Unemployed: No Education: High School Diploma/GED Difficulty w/ Childcare or Family Care: No Living arrangements: with family Occupation/Education: occupation Gender identity (if verbalized by the patient): Female Spiritual care concerns: No Anes - Eval Final PreProcedure Day of Procedure 12/18/24 09:16 Patient weight: obese Heart: regular rate and rhythm Lungs: clear to auscultation Airway: Mallampati scale class II Neurological: alert and oriented Last oral intake: >/= 8 hours ASA classification: II Emergent: no Anesthetic plan: proceed Anesthesia type and monitoring: general GIVS and standard monitoring Results Review: All pre-operative results and documents have been reviewed as part of the pre- operative evaluation. Informed Consent: The patient's anesthetic plan and its attendant risks and benefits were discussed with the patient/family/POA. Questions were solicited and answers provided to the satisfaction of the patient/family/POA.
--- NOTE | 2024-12-18 09:18 | P.HP_ITS ---
H&P: HPI History of Present Illness Date/Time: 12/18/24 09:18 Chief Complaint: Screening colonoscopy Narrative: This is the patient's first colonoscopy. There are no GI symptoms and there is no family history of colorectal cancer. Review of Systems Review of Systems: All systems reviewed & are unremarkable except as noted in HPI and below PMFSH Past Medical History Medical History Acute cholecystitis Sepsis Asthma Mixed hyperlipidemia Polycystic ovarian syndrome Surgical History Surgical History Hx laparoscopic cholecystectomy 08/28/[address] Lau Family History Family History Grandparent Diabetes mellitus Social History Social History Years smoked: 15 Smoking status: Former smoker Tobacco type: cigarettes Second hand tobacco smoke exposure: Yes Additional smoking assessment comments: SOCIALLY since she was in her early 20's, pt states maybe once every couple Alcohol intake: current Drinks per week: 1 Alcohol use details: occasionally Substance use: never Substance use type: marijuana Last use: July 18 Do You Feel Safe in your Home?: Yes Lack of Transportation: No Lack of Food: Never True Current Housing: I Have Housing Concerned About Future Housing: No Difficulty Paying Gas/Electric Bills: No Difficulty Paying for Meds: No Currently Unemployed: No Education: High School Diploma/GED Difficulty w/ Childcare or Family Care: No Living arrangements: with family Occupation/Education: occupation Gender identity (if verbalized by the patient): Female Spiritual care concerns: No Meds Home Medications and Allergies Home Medications ?Medication ?Instructions ?Recorded ?Confirmed ?Type omega 3-pch-lyq-fish oil 100 1 cap PO DAILY 01/16/22 0 12/18/24 History mg-160 mg-1,000 mg capsule (Fish Oil) albuterol sulfate 90 mcg/actuation 2 puff inhalation . Q4 hours PRN 07/13/23 12/18/24 Rx aerosol inhaler (Ventolin HFA) cough #18 grams alprazolam 0.5 mg tablet 0.5 mg PO TID PRN anxiety #1 5 tabs 05/11/24 12/18/24 Rx Semaglutide compounded 1 unit subcut WEEKLY 5 12/18/24 History sodium sul 1.479 gram-potas ch See Rx Instructions PO PER PKG DIR 07/23/24 12/18/24 Rx 0.188 gram-magnes sul 0.225 gram #24 tabs tablet (Sutab) spironolactone 50 mg tablet See Rx Instructions .Route 08/13/24 12/18/24 Rx .COMPLEX #180 tabs metformin 500 mg tablet,extended 1,000 mg (2 x 500 mg) PO BID #360 08/14/24 12/18/24 Rx release 24 hr tabs atorvastatin 10 mg tablet See Rx Instructions .Route 0 09/21/24 12/10/24 Rx .COMPLEX #90 tabs venlafaxine 37.5 mg See Rx Instructions .Route 0 10/05/24 12/18/24 Rx capsule,extended release 24 hr .COMPLEX #90 caps ondansetron HCl 4 mg tablet 4 mg PO Q6H PRN nausea and 10/26/24 Rx vomiting #4 tabs sodium,potassium,mag sulfates 17.5 See Rx Instructions PO .COMPLEX 10/26/24 Rx gram-3.13 gram-1.6 gram oral soln #354 mL (Suprep Bowel Prep Kit) Allergies Allergy/AdvReac Type Severity Reaction Status Date / Time Penicillins Allergy Unknown Peeling Verified 12/18/24 08:40 skin Vital Signs Vital Signs - 24 hr 12/18/24 08:43 Temperature 97.3 F L Pulse Rate 118 H Respiratory Rate 16 Blood Pressure 134/99 H Pulse Oximetry 98 Oxygen Delivery Room Air Exam Const: General: cooperative and healthy appearing Resp: Effort & Inspection: normal respiratory effort and able to speak in complete sentences Auscultation: clear to auscultation bilaterally Cardio: Rate: regular rate Rhythm: regular rhythm GI: Inspection: normal to inspection GI Palp: No No hepatosplenomegaly p resent Auscultation: normal bowel sounds Rectal Exam: deferred Skin: General skin exam: normal color Psych: Appearance: grossly normal Mental Status: mental status grossly normal Assessment and Plan Assessment and plan (1) Encounter for screening colonoscopy: Code(s): Z12.11 - Encounter for screening for malignant neoplasm of colon Status: Acute Assessment and Plan: The patient is deemed a good candidate for the procedure. Consent signed. Will proceed.
[2024-12-18 09:39] VITALS: BP 105/70; PULSE 94; RESP 20; O2SAT 99
[2024-12-18 09:49] VITALS: BP 109/76; PULSE 97; RESP 20; O2SAT 99
[2024-12-18 09:59] VITALS: BP 113/72; PULSE 96; RESP 20; O2SAT 99
== END 2024-12-18 10:14 | disposition home or self-care (01) ==
PROVIDERS: PCP Family Medicine; Referring Provider Family Medicine; Visit Provider Internal Medicine Gastroenterology
PROC: 0DJD8ZZ Inspection of Lower Intestinal Tract, Via Natural or Artificial Opening Endoscopic (ICD-10-PCS; CPT 45378; principal; 2024-12-18 09:30)
DX: Z12.11 Encounter for screening for malignant neoplasm of colon (principal); K57.30 Diverticulosis of large intestine without perforation or abscess without bleeding; E78.2 Mixed hyperlipidemia; J45.909 Unspecified asthma, uncomplicated; E28.2 Polycystic ovarian syndrome; F12.90 Cannabis use, unspecified, uncomplicated; E66.9 Obesity, unspecified; Z68.37 Body mass index [BMI] 37.0-37.9, adult; Z79.51 Long term (current) use of inhaled steroids; Z79.84 Long term (current) use of oral hypoglycemic drugs; Z90.49 Acquired absence of other specified parts of digestive tract; Z87.891 Personal history of nicotine dependence
CPT/HCPCS: 45378; 82948; J2003; J2704; J7120